=== PATIENT | female | born 1975 | race Two or more races ===

== ENCOUNTER 2016-11-23 05:14 | Inpatient (IN) | payer MEDICAID ==
[~2016-11-23] VITALS: Ht 152.4 cm; Wt 104.3 kg
[2016-11-23] VITALS (16 sets, daily range): BP systolic 94–137; BP diastolic 60–82
[~2016-11-23 05:14] MED LIST: ACTOS30 MG ORAL; LANTUS SOL100 UNIT/1 SUBQ; METFORMIN HCL500 M1 ORAL; OMEPRAZOLE20 M2 ORAL; ORA PO; SIMVASTATIN40 MG ORAL; [UNRECOGNIZED DRUG - OTHER] PO
[2016-11-23] MEDS ORDERED: ceFAZolin 1gm in D5W 55ml IVP ONE (06:00)
[2016-11-23] MEDS ORDERED: Surgicel 4in x 8in TOPIC ONE (07:01)
[2016-11-23] MEDS ORDERED: Bupivacaine 0.5% Inj 30 ml vial INJ ONE (07:01)
[2016-11-23] MEDS ORDERED: cefOXitin 2gm Inj ONE (07:14)
[2016-11-23] MEDS ORDERED: NS Irrig 1000ml ONE (07:45)
[2016-11-23] MEDS ORDERED: Morphine Sulfate 10mg/ml Inj ONE (07:45)
[2016-11-23] MEDS ORDERED: Propofol 10mg/ml 20ml IV ONE (07:45)
[2016-11-23] MEDS ORDERED: NS 110ml ONE (07:45)
[2016-11-23] MEDS ORDERED: Sterile Water Irrig 1000ml IRRIG ONE (07:45)
[2016-11-23] MEDS ORDERED: Glycopyrrolate 0.2mg/ml 1ml Vial ONE (07:45)
[2016-11-23] MEDS ORDERED: Succinylcholine 20mg/ml 10ml vial ONE (07:45)
[2016-11-23] MEDS ORDERED: fentaNYL 100 mcg/2 mL IV ONE (07:45)
[2016-11-23] MEDS ORDERED: Neostigmine 1mg/ml 10ml Inj ONE (07:45)
[2016-11-23] MEDS ORDERED: Midazolam 2mg/2ml Inj ONE (07:45)
--- NOTE | 2016-11-23 07:45 | Anethesia Preoperative Eval ---
Anesthesia Pre-op PMH/ROS General Date of Evaluation: Nov 23, 2016 Time of Evaluation: 07:26 Anesthesiologist: Zoila ASA Score: ASA 3 Mallampati Score Class I : Soft palate, uvula, fauces, pillars visible Class II: Soft palate, uvula, fauces visible Class III: Soft palate, base of uvula visible Class IV: Only hard plate visible Mallampati Classification: Class III Surgeon: Wiliam Diagnosis: R kidney hydronephrosis Surgical Procedure: Laparoscopic R nephrectomy Anesthesia History: none Family History: no anesthesia problems Allergies: Coded Allergies: NO KNOWN ALLERGIES (Verified Allergy, Unknown, 11/22/16) Medications: see eMAR Past Medical History Cardiovascular: Denies: CAD, HTN, [place], arrhythmia, other, valve dz Pulmonary: Reports: KENIA, Denies: COPD, asthma, other Gastrointestinal/Genitourinary: Reports: GERD, other - Recurrent UTI kidney stones, Denies: CRI, ESRD Neurologic/Psychiatric: Denies: CVA, TIA, dementia, depression/anxiety, other Endocrine: Reports: DM - Poorly controlled, Denies: hypothyroidism, other, steroids HEENT: Denies: YAKUTAT (L), YAKUTAT (R), cataract (L), cataract (R), glaucoma, other Hematology/Immune: Denies: DVT, anemia, bleeding disorder, other Musculoskeletal/Integumentary: Denies: DDD, DJD, OA, RA, edema, other Other: obesity PMH Narrative: as above PSxH Narrative: Sx for removal of kidney stones,R shoulder arthroscopy Anesthesia Pre-op Phys. Exam Physician Exam Last Vital Signs Date Time Temp Pulse Resp B/P Pulse Ox O2 Delivery O2 Flow Rate FiO2 11/23/16 05:57 98.2 77 20 103/62 95 Room Air Constitutional: NAD Neurologic: CN 2-12 intact Cardiovascular: RRR, no M/R/G Respiratory: CTA Gastrointestinal: other - Obesity Airway Exam Mallampati Score: Class III MO: full Neck: short ROM: full Teeth: intact Dentures: no lower, no upper Anesthesia Pre-op A/P Labs see chart Accucheck at admission 93, before entering the OR 85 , D5-0,5NSinfusion started Urine Test Test 11/23/16 05:30 Urine HCG, Qualitative Negative Studies Pre-op Studies: EKG - SR Risk Assessment & Plan Assessment: ASA 3 Plan: GA with ETT Status Change Before Surgery: No Pre-Antibiotics Drug: Cefoxitin 2r. Given Within 1 Hr of Incision: Yes Time Given: 08:10 WILFREDO DICKSON M.D. Nov 23, 2016 07:45
--- NOTE | 2016-11-23 07:47 | Pre-Procedure Note/Attestation ---
Pre-Procedure Note/Attestation Complete Prior to Procedure Procedure Narrative: Right Laparoscopic Nephrectomy Attestation I attest that I discussed the nature of the procedure; its benefits; risks and complications; and alternatives (and the risks and benefits of such alternatives ), prior to the procedure, with the patient (or the patient's legal membership sales representative). I attest that, if there was a reasonable possibility of needing a blood transfusion, the patient (or the patient's legal membership sales representative) was given the [facility] standardized written summary, pursuant to the Chema Jesse Blood Safety Act ([place] Health and Safety Code # 1645, as amended). I attest that I re-evaluated the patient just prior to the surgery and that there has been no change in the patient's H&P, except as documented below: Jose Swain MD Nov 23, 2016 07:47
--- NOTE | 2016-11-23 07:49 | Brief Operative Note ---
Immediate Post Operative Note Operative Note Procedure: Right Laparoscopic Nephrectomy Post-op Diagnosis: same Post-op Diagnosis: same as pre-op Surgeon: Elan Swain Anesthesia: general Specimen: yes Complications: none Condition: stable Estimated Blood Loss: minimal Drains: none Implant(s) used?: No Jose Swain MD Nov 23, 2016 07:49
[2016-11-23] MEDS ORDERED: HYDROmorphone 1mg/ml Carpuject IVP PRN (08:00)
[2016-11-23] MEDS ORDERED: LR 1000ml 1,000 ML IVLG SCH (08:36)
[2016-11-23] MEDS ORDERED: Meperidine 25mg/ml Inj IV PRN (08:45)
[2016-11-23] MEDS ORDERED: Metoclopramide 10mg/2ml Inj IVP PRN (08:45)
[2016-11-23] MEDS ORDERED: Hydromorphone 0.5mg/0.5ml inj IVP PRN (08:45)
[2016-11-23] MEDS ORDERED: DiphenhydrAMINE 50mg/ml Inj IVP PRN ×2 (08:45→09:30)
[2016-11-23] MEDS ORDERED: Midazolam 2mg/2ml Inj IVP PRN (08:45)
[2016-11-23] MEDS ORDERED: Naloxone 0.4mg/ml Inj IVP PRN (09:30)
[2016-11-23] MEDS ORDERED: Rate Change PCA 1 Each MISC PRN (09:30)
[2016-11-23] MEDS: fentaNYL 100 mcg/2 mL IV PRN ×2 (10:17→10:47)
--- NOTE | 2016-11-23 10:27 | Immediate Post-Op Evaluation ---
Immediate Post-Op Evalulation Immediate Post-Op Evalulation Procedure: R laparoscopic handassysted nephrectopmy Date of Evaluation: Nov 23, 2016 Time of Evaluation: 09:46 IV Fluids: 1000 Blood Products: none Estimated Blood Loss: 150 Urinary Output: 100 Blood Pressure Systolic: 134 Blood Pressure Diastolic: 68 Pulse Rate: 79 Respiratory Rate: 20 O2 Sat by Pulse Oximetry: 99 Temperature (Fahrenheit): 97.5 Pain Score (1-10): 2 Nausea: No Vomiting: No Complications none Patient Status: reacts, patent, extubated, none Hydration Status: adequate WILFREDO DICKSON M.D. Nov 23, 2016 10:27
[2016-11-23] MEDS: PCA HYDROmorphone 1mg/ml 30 ML IV PRN (11:48)
[2016-11-23] MEDS: D5 1/2NS w/KCl 20mEq 1,000 ML IV SCH (14:46)
[2016-11-23] MEDS: PCA shift volume MISC SCH ×2 (15:28→23:00)
[2016-11-23] MEDS: ceFAZolin sod 2 GM in D5W 100 ML IV SCH (16:58)
[2016-11-23] MEDS: Docusate 100mg cap ORAL SCH (18:00)
--- NOTE | 2016-11-23 18:47 | Operative Note - Dictated ---
DATE OF OPERATION: 11/23/2016 PREOPERATIVE DIAGNOSIS: Nonfunctioning right kidney with recurrent stones and infection. POSTOPERATIVE DIAGNOSIS: Nonfunctioning right kidney with recurrent stones and infection. OPERATION: Right laparoscopic radical nephrectomy. OPERATED BY: Jose Swain M.D. ANESTHESIA: General. FINDINGS: Nonfunctioning kidney. INDICATIONS FOR SURGERY: The patient had multiple procedures on the right kidney with PCNL and retrograde intrarenal surgery, developed recurrence stone and enlarged nonfunctioning upper moiety of the kidney. Due to her constant hospitalizations, pain and discomfort, she asked me to remove this kidney. I explained to her all the benefits and problems living with one kidney, she insisted on right laparoscopic nephrectomy. Due to the fact the kidney was mostly nonfunctioning with recurrent large stones, I agreed to perform laparoscopic nephrectomy. Treatment option again was explained to her as well as all potential complications. She signed a consent. DESCRIPTION OF OPERATION: She was brought to the operating room, placed in a right lateral decubital position, prepped and draped in standard fashion. A 7 centimeter incision was made at the McBurney's point and a hand port was placed. After that, two additional 12 millimeter trocar was placed. The colon was retracted medially and the duodenum was cauterized and then moved cephalad and medially as well. Exposing right renal fossa, ureter was transected with an Endo-NUHA. The kidney was dissected on all aspects all way to the renal pedicle, which was transected with Endo-NUHA, adrenal was preserved. Surgicel was placed at the area of the adrenal. Kidney was removed for pathologic examination. There was no evidence of bleeding. Total estimated blood loss was 50 mL. was placed back. Wound was closed with three layers of running 0 Vicryl suture. Stacey for the skin. The patient tolerated the procedure well. No complications. Sponge count and instrument count was correct. Jose Swain M.D. DR: BENTLEY JOB#: [id number] CC:
[2016-11-24] VITALS: BP 97/58
[2016-11-24] MEDS: ceFAZolin sod 2 GM in D5W 100 ML IV SCH (00:41)
[2016-11-24] MEDS: D5 1/2NS w/KCl 20mEq 1,000 ML IV SCH ×2 (00:41→09:14)
[2016-11-24 04:00] VITALS: BP 104/66
[2016-11-24 07:09] LABS: BASOPHILS % (AUTO) 0.9 % (0.0-2.0); EOSINOPHILS % (AUTO) 1.2 % (0.0-3.0); LYMPHOCYTES % (AUTO) 27.8 % (20.0-45.0); MEAN CORPUSCULAR HEMOGLOBIN 29.7 PG (27.0-31.0); MEAN CORPUSCULAR HGB CONC 32.5 G/DL (32.0-36.0); MEAN CORPUSCULAR VOLUME 92 FL (80-99); MEAN PLATELET VOLUME 5.9 FL (6.5-10.1); MONOCYTES % (AUTO) 10.2 % (1.0-10.0); NEUTROPHILS % (AUTO) 59.9 % (45.0-75.0); PLATELET COUNT 244 K/UL (150-450); RED BLOOD COUNT 3.96 M/UL (4.20-5.40); RED CELL DISTRIBUTION WIDTH 12.1 % (11.6-14.8); WHITE BLOOD COUNT 5.7 K/UL (4.8-10.8)
[2016-11-24] MEDS: PCA shift volume MISC SCH ×3 (07:28→23:00)
[2016-11-24 07:31] LABS: ANION GAP 8 (5-15); CALCIUM 8.1 mg/dL (8.6-10.2); CARBON DIOXIDE 27 mEQ/L (20-30); CHLORIDE 97 mEQ/L (98-107); GLOMERULAR FILTRATION RATE > 60 mL/min (>60); HEMOLYSIS 9; POTASSIUM 5.3 mEQ/L (3.4-4.9); SODIUM 132 mEQ/L (135-145)
[2016-11-24 08:00] VITALS: BP 111/64
[2016-11-24] MEDS: Docusate 100mg cap ORAL SCH ×2 (08:55→17:09)
--- NOTE | 2016-11-24 10:59 | 48 Hour Post Anesthesia Eval ---
Post Anesthesia Evaluation Procedure: R laparoscopic handassysted nephrectopmy Date of Evaluation: Nov 24, 2016 Time of Evaluation: 06:45 Blood Pressure Systolic: 104 0: 66 Pulse Rate: 88 Respiratory Rate: 18 Temperature (Fahrenheit): 98.1 O2 Sat by Pulse Oximetry: 97 Airway: patent Nausea: No Vomiting: No Pain Intensity: 2 Hydration Status: adequate Cardiopulmonary Status: at baseline Mental Status/LOC: patient returned to baseline Post-Anesthesia Complications: 0 Follow-up care needed: N/A - further care as per primary team AJAY SERRANO M.D. Nov 24, 2016 10:59
[2016-11-24 12:00] VITALS: BP_SYST 107; BP_SYST 91; BP_DIAS 55; BP_DIAS 63
[2016-11-24 16:17] VITALS: BP 106/65
[2016-11-24] MEDS: PCA HYDROmorphone 1mg/ml 30 ML IV PRN (17:09)
[2016-11-24 20:00] VITALS: BP 96/64
[2016-11-25] VITALS: BP 100/58
[2016-11-25 04:00] VITALS: BP 103/63
[2016-11-25] MEDS: PCA shift volume MISC SCH (07:00)
[2016-11-25 08:00] VITALS: BP 119/66
[2016-11-25] MEDS: Docusate 100mg cap ORAL SCH (09:04)
--- NOTE | 2016-11-25 09:47 | Internal Med Progress Note ---
Subjective Physician Name Mayco Gamboa Attending Physician Jose Swain MD Current Medications Medications (Trade) Dose Ordered Sig/Triny Route PRN Reason Start Time Stop Time Status Last Admin Dose Admin Acetaminophen (Tylenol) 650 mg Q4H PRN ORAL FEVER 11/23/16 08:00 12/23/16 07:59 Acetaminophen (Tylenol) 650 mg Q6H PRN ORAL Mild Pain (Pain Scale 1-3) 11/23/16 08:00 12/23/16 07:59 11/25/16 09:04 Docusate Sodium (Colace) 100 mg TWICE A DAY ORAL 11/23/16 18:00 12/23/16 17:59 11/25/16 09:04 Hydromorphone HCl (Dilaudid) 1 mg Q3H PRN IVP pain score 4-6 11/23/16 08:00 11/30/16 07:59 Ondansetron HCl (Zofran) 4 mg Q6H PRN IVP Nausea & Vomiting 11/23/16 08:00 12/23/16 07:59 Pantoprazole 40 mg 40 mg DAILY ORAL 11/24/16 09:00 12/24/16 08:59 11/25/16 09:04 Sodium Chloride (0.45% NS 1000ml) 1,000 ml @ 100 mls/hr Q10H IV 11/24/16 10:00 12/24/16 09:59 11/25/16 06:03 Allergies: Coded Allergies: NO KNOWN ALLERGIES (Verified Allergy, Unknown, 11/22/16) Subjective awake, alert, responsive, NAD Objective Last Vital Signs Date Time Temp Pulse Resp B/P Pulse Ox O2 Delivery O2 Flow Rate FiO2 11/25/16 08:00 98.6 93 20 119/66 96 Room Air 11/24/16 04:00 2.0 Intake and Output 11/24/16 11/25/16 19:00 07:00 Intake Total 480 ml 640 ml Output Total 1800 ml Balance 480 ml -1160 ml Intake Oral 480 ml 240 ml IV Total 400 ml Output Urine Total 1800 ml # Voids 3 Objective General Appearance: WD/WN, no apparent distress EENT: PERRL/EOMI, normal ENT inspection Neck: non-tender, normal alignment, supple, No JVD Cardiovascular: normal peripheral pulses, normal rate, regular rhythm, no murmur Respiratory/Chest: chest wall non-tender, lungs clear, normal breath sounds, no respiratory distress. Abdomen: normal bowel sounds, + tender, soft, Right side and Lower Q surgical incision intact dressing Extremities: No C/C / Edema Neurologic: detective investigator II-XII grossly normal, no motor/sensory deficits Skin: normal pigmentation, warm/dry Assessment/Plan Assessment/Plan HTN DM HL Morbid Obesity Hyperkalemia CKD Hyponatremia Nonfunctioning right kidney with recurrent stones and infection s/p Right laparoscopic radical nephrectomy (11/23/2016). Plan: monitor Labs Pain Medication DC Planning soon. F/U with Urology in 1 week as out patient. Mayco Gamboa MD Nov 25, 2016 09:47
[2016-11-25 10:10] LABS: BASOPHILS % (AUTO) 0.7 % (0.0-2.0); EOSINOPHILS % (AUTO) 0.5 % (0.0-3.0); MEAN CORPUSCULAR HEMOGLOBIN 29.3 PG (27.0-31.0); MEAN CORPUSCULAR HGB CONC 32.8 G/DL (32.0-36.0); MEAN CORPUSCULAR VOLUME 89 FL (80-99); MONOCYTES % (AUTO) 5.8 % (1.0-10.0); PLATELET COUNT 257 K/UL (150-450); RED BLOOD COUNT 3.82 M/UL (4.20-5.40); RED CELL DISTRIBUTION WIDTH 11.5 % (11.6-14.8); WHITE BLOOD COUNT 7.9 K/UL (4.8-10.8)
[2016-11-25 10:27] LABS: ALANINE AMINOTRANSFERASE 11 U/L (3-33); ALBUMIN/GLOBULIN RATIO 0.9 (1.0-2.7); ANION GAP 11 (5-15); ASPARTATE AMINO TRANSFERASE 16 U/L (5-40); CALCIUM 8.6 mg/dL (8.6-10.2); CARBON DIOXIDE 28 mEQ/L (20-30); CHLORIDE 93 mEQ/L (98-107); CREATININE 0.8 mg/dL (0.5-0.9); GLOMERULAR FILTRATION RATE > 60 mL/min (>60); HEMOLYSIS 1; MAGNESIUM 1.9 mg/dL (1.7-2.5); PHOSPHORUS 2.3 mg/dL (2.5-4.8); POTASSIUM 4.4 mEQ/L (3.4-4.9); SODIUM 132 mEQ/L (135-145); TOTAL PROTEIN 7.3 g/dL (6.6-8.7)
--- NOTE | 2016-11-25 19:42 | Discharge Summary ---
Discharge Summary Hospital Course Date of Admission Nov 23, 2016 at 05:14 Date of Discharge Nov 25, 2016 at 13:23 Admitting Diagnosis HPI Elvie Steel is a 41 year old female who was admitted on Nov 23, 2016 at 05:14 for Hydronephrosis Hospital Course [id number] Discharge Discharge Disposition Patient was discharged to Home (01) Discharge Diagnoses: Perri Chester NP Nov 25, 2016 19:42
--- NOTE | 2016-11-26 16:47 | Discharge Summary 2 SIG ---
DATE OF ADMISSION: 11/23/2016 DATE OF DISCHARGE: 11/25/2016 [facility] GUIDE: Mayco Gamboa M.D. BRIEF HOSPITAL COURSE: The patient is a 41-year-old female, who had multiple procedures on the right kidney with PCNL and retrograde intrarenal surgery, developed recurrent stones and enlarged nonfunctioning kidney. Due to her constant hospitalizations, pain, and discomfort, the patient opted to remove kidney. On 11/23/2016, she underwent right laparoscopic radical nephrectomy. Postoperatively, she was given pain management and IV hydration and incentive spirometry. Diet was eventually advanced. Orta catheter was discontinued, and the patient was voiding well and was discharged home. FINAL DIAGNOSES: 1. Nonfunctioning right kidney with recurrent stones and infections, status post right laparoscopic radical nephrectomy. 2. Hyponatremia. 3. Chronic kidney disease. 4. Hyperkalemia. 5. Morbid obesity. 6. Hyperlipidemia. 7. Diabetes mellitus. 8. Hypertension. Jose Swain M.D. I have been assigned to dictate discharge summary on this account and I was not involved in the patient's management. Perri Chester N.P. DR: BIJU JOB#: [id number] CC:
== END 2016-11-25 13:23 | disposition home or self-care (01) | DRG 443 ==
LOC: SDSOVERFLO 05:14 → 3E 12:36
PROC: 0TT04ZZ Resection of Right Kidney, Percutaneous Endoscopic Approach (ICD-10-PCS; principal; 2016-11-23 07:30)
DX: N13.6 Pyonephrosis (principal); E11.65 Type 2 diabetes mellitus with hyperglycemia; I12.9 Hypertensive chronic kidney disease with stage 1 through stage 4 chronic kidney disease, or unspecified chronic kidney disease; G47.33 Obstructive sleep apnea (adult) (pediatric); K21.9 Gastro-esophageal reflux disease without esophagitis; N28.9 Disorder of kidney and ureter, unspecified; E87.1 Hypo-osmolality and hyponatremia; N18.9 Chronic kidney disease, unspecified; E11.9 Type 2 diabetes mellitus without complications; E87.5 Hyperkalemia; E66.01 Morbid (severe) obesity due to excess calories; E78.5 Hyperlipidemia, unspecified
CPT/HCPCS: 36415; 80048; 80053; 81025; 82962; 83735; 84100; 85025; 86850; 86900; 86901; 87081; 94003; 94150; J2250; J2405; J2710

== ENCOUNTER 2016-11-27 18:31 | Emergency (ER) | payer MEDICAID ==
[~2016-11-27] VITALS: Ht 152.4 cm; Wt 104.3 kg
[2016-11-27 18:57] VITALS: BP 148/84
[2016-11-27] MEDS ORDERED: Morphine Sulfate 4mg/ml Inj IVP ONE (19:15)
[2016-11-27 20:00] VITALS: BP 134/86
[2016-11-27 20:21] LABS: BASOPHILS % (AUTO) 1.5 % (0.0-2.0); EOSINOPHILS % (AUTO) 0.6 % (0.0-3.0); LYMPHOCYTES % (AUTO) 20.9 % (20.0-45.0); MEAN CORPUSCULAR HEMOGLOBIN 29.5 PG (27.0-31.0); MEAN CORPUSCULAR HGB CONC 33.2 G/DL (32.0-36.0); MEAN CORPUSCULAR VOLUME 89 FL (80-99); MONOCYTES % (AUTO) 8.1 % (1.0-10.0); PLATELET COUNT 399 K/UL (150-450); RED BLOOD COUNT 4.11 M/UL (4.20-5.40); RED CELL DISTRIBUTION WIDTH 11.7 % (11.6-14.8)
[2016-11-27 20:25] LABS: APPEARANCE,URINE CLOUDY; KETONES,URINE 4+ (NEGATIVE); LEUKOCYTE ESTERASE ,URINE 1+ (NEGATIVE); NITRITE,URINE NEGATIVE (NEGATIVE); PH,URINE 9 (4.5-8.0); PROTEIN,URINE 2+ (NEGATIVE); UROBILINOGEN,URINE 4 MG/DL (0.0-1.0)
[2016-11-27 20:32] LABS: BACTERIA,URINE MODERATE /HPF; ICTOTEST NEGATIVE; RBC,URINE 0 /HPF (0 - 2); SQUAMOUS EPITHELIAL CELL,UR MODERATE /LPF (NONE/OCC)
[2016-11-27 20:52] LABS: ALANINE AMINOTRANSFERASE 11 U/L (3-33); ALBUMIN/GLOBULIN RATIO 0.9 (1.0-2.7); ANION GAP 18 (5-15); ASPARTATE AMINO TRANSFERASE 21 U/L (5-40); CALCIUM 9.3 mg/dL (8.6-10.2); CARBON DIOXIDE 25 mEQ/L (20-30); CHLORIDE 88 mEQ/L (98-107); CREATININE 0.8 mg/dL (0.5-0.9); GLOMERULAR FILTRATION RATE > 60 mL/min (>60); HEMOLYSIS 1; LIPASE 21 U/L (< 60); POTASSIUM 3.5 mEQ/L (3.4-4.9); SODIUM 131 mEQ/L (135-145); TOTAL PROTEIN 7.6 g/dL (6.6-8.7)
[2016-11-27 21:00] VITALS: BP 126/74
[2016-11-27 21:09] LABS: BILIRUBIN,DIRECT 0.4 mg/dL (0.1-0.3)
[2016-11-27] MEDS ORDERED: cefTRIAXone 1 GM in NS 55 ML IVPB ONE (21:30)
[2016-11-27] MEDS ORDERED: ZOFRAN ODT4 MG ORAL (21:53)
[2016-11-27] MEDS ORDERED: KEFLEX500 MG ORAL (21:53)
[2016-11-27 22:08] VITALS: BP 126/74
--- NOTE | 2016-11-28 14:40 | Emergency Room Report ---
History of Present Illness General Chief Complaint: Abdominal Pain Source: Patient Present Illness HPI 41-year-old female presents ED complaining of abdominal pain and vomiting. Patient states symptoms started 2 days ago. Pain is sharp. 10 out of 10. Localized lower abdomen radiating to the back. Denies fevers chills. Notes nausea and vomiting. She states she was just discharged from [facility] after having nephrectomy on the right side. No other aggravating or relieving factors. Denies any other associated symptoms Allergies: Coded Allergies: NO KNOWN ALLERGIES (Verified Allergy, Unknown, 11/22/16) Patient History Past Medical History: DM, asthma, GERD Past Surgical History: none Pertinent Family History: none Social History: Denies: alcohol use, drug use, smoking Last Menstrual Period: hysterectomy 2016 Now: No Immunizations: UTD Reviewed Nursing Documentation: PMH: Agreed, PSxH: Agreed Nursing Documentation-PMH Hx Asthma: Yes Hx Diabetes: Yes Hx Cancer: No Hx Gastrointestinal Problems: Yes - GASTRITIS; CONSTIPATION Hx Neurological Problems: No Review of Systems All Other Systems: negative except mentioned in HPI Physical Exam Vital Signs Date Time Temp Pulse Resp B/P Pulse Ox O2 Delivery O2 Flow Rate FiO2 11/27/16 18:46 98.6 81 23 148/84 100 Room Air 11/27/16 20:00 2.0 Sp02 EP Interpretation: reviewed, normal General Appearance: no apparent distress, alert, GCS 15, non-toxic, obese Head: normocephalic, atraumatic Eyes: bilateral eye PERRL, bilateral eye normal inspection ENT: hearing grossly normal, normal pharynx, no angioedema, normal voice Neck: full range of motion, supple/symm/no masses Respiratory: chest non-tender, lungs clear, normal breath sounds, speaking full sentences Cardiovascular #1: regular rate, rhythm, no edema Cardiovascular #2: 2+ carotid (R), 2+ carotid (L), 2+ radial (R), 2+ radial (L) , 2+ dorsalis pedis (R), 2+ dorsalis pedis (L) Gastrointestinal: normal bowel sounds, non-distended, no guarding, no rebound, tenderness - suprapubic pain, other - surgical sites C/D/I Rectal: deferred Genitourinary: normal inspection, no CVA tenderness Musculoskeletal: back normal, gait/station normal, normal range of motion, non- tender Neurologic: alert, oriented x3, responsive, motor strength/tone normal, sensory intact, speech normal Psychiatric: judgement/insight normal, memory normal, mood/affect normal, no suicidal/homicidal ideation Reflexes: 3+ bicep (R), 3+ bicep (L), 3+ tricep (R), 3+ tricep (L), 3+ knee (R) , 3+ knee (L) Skin: normal color, no rash, warm/dry, well hydrated Lymphatic: no adenopathy Medical Decision Making Diagnostic Impression: Primary Impression: Cystitis ER Course Hospital Course 41-year-old female presents ED with abdominal pain and vomiting. Status post nephrectomy Differential diagnoses include: UTI, cystitis, pyelonephritis, surgical site infection Clinical course Patient placed on stretcher. After initial history and physical I ordered UA, labs, IV fluids, pain Meds labs - no leukocytosis noted, hbhematocrit stable, electrolytes okay, UA grossly positive On reassessment pain is improved. Given Rocephin in ED. I discussed case with urologist Dr. Swain; he agreed that patient be safely discharged to home at this time and should followup Diagnosis - cystitis Stable and discharged home with prescriptions for Rx zofran, keflex. Followup with PMD. Return to ED if symptoms recur or worsen Labs Test 11/27/16 19:50 White Blood Count 5.0 K/UL (4.8-10.8) Red Blood Count 4.11 M/UL (4.20-5.40) Hemoglobin 12.1 G/DL (12.0-16.0) Hematocrit 36.6 % (37.0-47.0) Mean Corpuscular Volume 89 FL (80-99) Mean Corpuscular Hemoglobin 29.5 PG (27.0-31.0) Mean Corpuscular Hemoglobin Concent 33.2 G/DL (32.0-36.0) Red Cell Distribution Width 11.7 % (11.6-14.8) Platelet Count 399 K/UL (150-450) Mean Platelet Volume 5.0 FL (6.5-10.1) Neutrophils (%) (Auto) 69.0 % (45.0-75.0) Lymphocytes (%) (Auto) 20.9 % (20.0-45.0) Monocytes (%) (Auto) 8.1 % (1.0-10.0) Eosinophils (%) (Auto) 0.6 % (0.0-3.0) Basophils (%) (Auto) 1.5 % (0.0-2.0) Urine Color Treva Urine Appearance Cloudy Urine pH 9 (4.5-8.0) Urine Specific [place] 1.015 (1.005-1.035) Urine Protein 2+ (NEGATIVE) Urine Glucose (UA) Negative (NEGATIVE) Urine Ketones 4+ (NEGATIVE) Urine Occult Blood Negative (NEGATIVE) Urine Nitrite Negative (NEGATIVE) Urine Bilirubin Negative (NEGATIVE) Urine Ictotest Negative Urine Urobilinogen 4 MG/DL (0.0-1.0) Urine Leukocyte Esterase 1+ (NEGATIVE) Urine RBC 0 /HPF (0 - 2) Urine WBC 5-10 /HPF (0 - 2) Urine Squamous Epithelial Cells Moderate /LPF (NONE/OCC) Urine Bacteria Moderate /HPF (NONE) Sodium Level 131 mEQ/L (135-145) Potassium Level 3.5 mEQ/L (3.4-4.9) Chloride Level 88 mEQ/L (98-107) Carbon Dioxide Level 25 mEQ/L (20-30) Anion Gap 18 (5-15) Blood Urea Nitrogen 11 mg/dL (7-23) Creatinine 0.8 mg/dL (0.5-0.9) Estimat Glomerular Filtration Rate > 60 mL/min (>60) Glucose Level 165 mg/dL (74-106) Calcium Level 9.3 mg/dL (8.6-10.2) Total Bilirubin 1.8 mg/dL (0.0-1.2) Direct Bilirubin 0.4 mg/dL (0.1-0.3) Aspartate Amino Transf (AST/SGOT) 21 U/L (5-40) Alanine Aminotransferase (ALT/SGPT) 11 U/L (3-33) Alkaline Phosphatase 98 U/L (35-104) Total Protein 7.6 g/dL (6.6-8.7) Albumin 3.6 g/dL (3.5-5.2) Globulin 4.0 g/dL Albumin/Globulin Ratio 0.9 (1.0-2.7) Lipase 21 U/L (< 60) Last Vital Signs Date Time Temp Pulse Resp B/P Pulse Ox O2 Delivery O2 Flow Rate FiO2 11/27/16 22:08 98.6 101 26 126/74 99 Nasal Cannula 2.0 Status: improved Disposition: HOME, SELF-CARE Condition: Stable Scripts Ondansetron Odt* (ZOFRAN ODT*) 4 Mg Tab.rapdis 4 MG ORAL Q6H Y for Nausea & Vomiting, #30 TAB 0 Refills Prov: CECILIA IBARRA M.D. 11/27/16 Cephalexin* (KEFLEX*) 500 Mg Capsule 500 MG ORAL Q6H, #28 CAP 0 Refills Prov: CECILIA IBARRA M.D. 11/27/16 Referrals: Jose Swain MD Patient Instructions: Urinary Tract Infection CECILIA IBARRA M.D. Nov 28, 2016 14:40
== END 2016-11-27 22:08 | disposition home or self-care (01) ==
LOC: EMR 19:00
DX: N30.90 Cystitis, unspecified without hematuria (principal); R11.2 Nausea with vomiting, unspecified; E11.9 Type 2 diabetes mellitus without complications; Z87.09 Personal history of other diseases of the respiratory system; Z87.19 Personal history of other diseases of the digestive system; Z90.710 Acquired absence of both cervix and uterus; Z90.5 Acquired absence of kidney
CPT/HCPCS: 36415; 80053; 81003; 82248; 83690; 85025; 87086; 87181; 96361; 96365; 96374; 96375; 99284; J0696; J2270; J2405

== ENCOUNTER 2016-11-28 18:12 | Inpatient (IN) | payer MEDICAID ==
[~2016-11-28] VITALS: Ht 177.8 cm; Wt 104.3 kg
[~2016-11-28 18:12] MED LIST changes: +KEFLEX500 MG ORAL; +ZOFRAN ODT4 MG ORAL
--- NOTE | 2016-11-28 18:57 | Emergency Room Report ---
History of Present Illness General Chief Complaint: Vomiting Source: Patient Present Illness HPI 41-year-old female presents to ED for evaluation of vomiting and weakness. Patient states that last week she had nephrectomy done here at [place]. Was discharged a few days later. States that after being discharged he was having abdominal pain and vomiting. Was seen in ER yesterday. Workup showed cystitis and was discharged with Keflex and Zofran. Patient states that the vomiting is persisting she came back to ER today. Denies any abdominal pain at this time. Denies any fevers or chills. No other aggravating or relieving factors. Denies any other associated symptoms Allergies: Coded Allergies: NO KNOWN ALLERGIES (Verified Allergy, Unknown, 11/22/16) Patient History Past Medical History: DM, asthma, GERD Past Surgical History: other - nephrectomy Pertinent Family History: none Social History: Denies: alcohol use, drug use, smoking Now: No Immunizations: UTD Reviewed Nursing Documentation: PMH: Agreed, PSxH: Agreed Nursing Documentation-PMH Hx Asthma: Yes Hx Diabetes: Yes Hx Cancer: No Hx Gastrointestinal Problems: Yes - GASTRITIS; CONSTIPATION;Nephrectomy Hx Neurological Problems: No Review of Systems All Other Systems: negative except mentioned in HPI Physical Exam Vital Signs Date Time Temp Pulse Resp B/P Pulse Ox O2 Delivery O2 Flow Rate FiO2 11/28/16 18:28 98.2 79 20 128/85 99 Room Air Sp02 EP Interpretation: reviewed, normal General Appearance: no apparent distress, alert, GCS 15, non-toxic, obese Head: normocephalic, atraumatic Eyes: bilateral eye PERRL, bilateral eye normal inspection ENT: hearing grossly normal, normal pharynx, no angioedema, normal voice Neck: full range of motion, supple/symm/no masses Respiratory: chest non-tender, lungs clear, normal breath sounds, speaking full sentences Cardiovascular #1: regular rate, rhythm, no edema Cardiovascular #2: 2+ carotid (R), 2+ carotid (L), 2+ radial (R), 2+ radial (L) , 2+ dorsalis pedis (R), 2+ dorsalis pedis (L) Gastrointestinal: normal bowel sounds, non tender, soft, non-distended, no guarding, no rebound Rectal: deferred Genitourinary: normal inspection, no CVA tenderness Musculoskeletal: back normal, gait/station normal, normal range of motion, non- tender Neurologic: alert, oriented x3, responsive, motor strength/tone normal, sensory intact, speech normal Psychiatric: judgement/insight normal, memory normal, mood/affect normal, no suicidal/homicidal ideation Reflexes: 3+ bicep (R), 3+ bicep (L), 3+ tricep (R), 3+ tricep (L), 3+ knee (R) , 3+ knee (L) Skin: normal color, no rash, warm/dry, well hydrated Lymphatic: no adenopathy Medical Decision Making Diagnostic Impression: Primary Impression: Postoperative ileus Additional Impression: Small bowel obstruction ER Course Hospital Course 41-year-old female presents to ED with abdominal pain and vomiting. s/p recent nephrectomy. patient here yesterday for same complaint Differential diagnoses include: BPH, cystitis, pyelonephritis, kidney stone,SBO Clinical course Patient placed on stretcher. vp product management. I evaluated the patient yesterday. Given that patient is returning with continued vomiting we will have a CT done at this time I ordered labs, IVFs, zofarn, CT Labs - no leukocytosis, Hb/Hct stable. electrolytes ok. CT abdomen and pelvis - SBO with transition point She is passing gas and having bowel movements. Likely the instruction is partial and likely an ileus NG tube placed. Case discussed with Dr. Jarquin and he agreed to accept the patient to his service for further care and support. Dr. Swain will continue to follow patient. Dr. Leblanc agreed to consult on case I feel this is a highly complex case requiring extensive working including EKG/ Rhythm strip, Xray/CT/US, Blood/urine lab work, repeat exams while in ED, and administration of strong opiates/narcotics for pain control, admission to hospital or close patient follow up. Diagnosis - small bowel obstruction, postoperative ileus Patient admitted to floor in serious condition Labs Test 11/28/16 18:59 11/29/16 05:45 11/30/16 06:10 White Blood Count 6.1 K/UL (4.8-10.8) 5.2 K/UL (4.8-10.8) Red Blood Count 4.04 M/UL (4.20-5.40) 3.73 M/UL (4.20-5.40) Hemoglobin 12.1 G/DL (12.0-16.0) 11.0 G/DL (12.0-16.0) Hematocrit 35.5 % (37.0-47.0) 33.3 % (37.0-47.0) Mean Corpuscular Volume 88 FL (80-99) 89 FL (80-99) Mean Corpuscular Hemoglobin 30.0 PG (27.0-31.0) 29.5 PG (27.0-31.0) Mean Corpuscular Hemoglobin Concent 34.1 G/DL (32.0-36.0) 33.1 G/DL (32.0-36.0) Red Cell Distribution Width 11.4 % (11.6-14.8) 12.0 % (11.6-14.8) Platelet Count 402 K/UL (150-450) 403 K/UL (150-450) Mean Platelet Volume 4.9 FL (6.5-10.1) 4.8 FL (6.5-10.1) Neutrophils (%) (Auto) 70.8 % (45.0-75.0) 68.3 % (45.0-75.0) Lymphocytes (%) (Auto) 19.3 % (20.0-45.0) 19.3 % (20.0-45.0) Monocytes (%) (Auto) 7.8 % (1.0-10.0) 9.8 % (1.0-10.0) Eosinophils (%) (Auto) 0.7 % (0.0-3.0) 1.4 % (0.0-3.0) Basophils (%) (Auto) 1.4 % (0.0-2.0) 1.1 % (0.0-2.0) Urine Color Yellow Urine Appearance Clear Urine pH 9 (4.5-8.0) Urine Specific [place] 1.015 (1.005-1.035) Urine Protein 2+ (NEGATIVE) Urine Glucose (UA) Negative (NEGATIVE) Urine Ketones 4+ (NEGATIVE) Urine Occult Blood Negative (NEGATIVE) Urine Nitrite Negative (NEGATIVE) Urine Bilirubin Negative (NEGATIVE) Urine Urobilinogen 4 MG/DL (0.0-1.0) Urine Leukocyte Esterase 1+ (NEGATIVE) Urine RBC 0-2 /HPF (0 - 2) Urine WBC 2-4 /HPF (0 - 2) Urine Squamous Epithelial Cells Few /LPF (NONE/OCC) Urine Bacteria Few /HPF (NONE) Urine HCG, Qualitative Negative Sodium Level 131 mEQ/L (135-145) 132 mEQ/L (135-145) Potassium Level 3.8 mEQ/L (3.4-4.9) 2.8 mEQ/L (3.4-4.9) Chloride Level 86 mEQ/L (98-107) 88 mEQ/L (98-107) Carbon Dioxide Level 27 mEQ/L (20-30) 30 mEQ/L (20-30) Anion Gap 18 (5-15) 14 (5-15) Blood Urea Nitrogen 12 mg/dL (7-23) 16 mg/dL (7-23) Creatinine 0.7 mg/dL (0.5-0.9) 0.8 mg/dL (0.5-0.9) Estimat Glomerular Filtration Rate > 60 mL/min (>60) > 60 mL/min (>60) Glucose Level 152 mg/dL (74-106) 162 mg/dL (74-106) Calcium Level 9.3 mg/dL (8.6-10.2) 8.8 mg/dL (8.6-10.2) Total Bilirubin 1.6 mg/dL (0.0-1.2) 1.4 mg/dL (0.0-1.2) Direct Bilirubin 0.4 mg/dL (0.1-0.3) 0.3 mg/dL (0.1-0.3) Aspartate Amino Transf (AST/SGOT) 25 U/L (5-40) 24 U/L (5-40) Alanine Aminotransferase (ALT/SGPT) 15 U/L (3-33) 16 U/L (3-33) Alkaline Phosphatase 97 U/L (35-104) 97 U/L (35-104) Total Protein 7.6 g/dL (6.6-8.7) 6.9 g/dL (6.6-8.7) Albumin 3.8 g/dL (3.5-5.2) 3.6 g/dL (3.5-5.2) Globulin 3.8 g/dL 3.3 g/dL Albumin/Globulin Ratio 1.0 (1.0-2.7) 1.0 (1.0-2.7) Lipase 23 U/L (< 60) 34 U/L (< 60) Prothrombin Time 10.3 SEC (9.30-11.50) Prothromb Time International Ratio 1.0 (0.9-1.1) Activated Partial Thromboplast Time 25 SEC (23-33) Hemoglobin A1c 8.2 % (< 6.0) Amylase Level 57 U/L (10-110) Thyroid Stimulating Hormone (TSH) 1.360 uIU/mL (0.300-4.500) CT/MRI/US Diagnostic Results CT/MRI/US Diagnostic Results : Imaging Test Ordered: CT A/P Impression dilated loops of bowel with transition point. consistent with SBO Last Vital Signs Date Time Temp Pulse Resp B/P Pulse Ox O2 Delivery O2 Flow Rate FiO2 11/28/16 18:28 98.2 79 20 128/85 99 Room Air Status: improved Disposition: ADMITTED INPATIENT Condition: Serious Referrals: [facility],REFERRING (PCP) CECILIA IBARRA M.D. Nov 28, 2016 18:57
[2016-11-28 19:17] VITALS: BP 123/77
[2016-11-28 19:28] LABS: BASOPHILS % (AUTO) 1.4 % (0.0-2.0); EOSINOPHILS % (AUTO) 0.7 % (0.0-3.0); LYMPHOCYTES % (AUTO) 19.3 % (20.0-45.0); MEAN CORPUSCULAR HGB CONC 34.1 G/DL (32.0-36.0); MEAN CORPUSCULAR VOLUME 88 FL (80-99); MEAN PLATELET VOLUME 4.9 FL (6.5-10.1); MONOCYTES % (AUTO) 7.8 % (1.0-10.0); NEUTROPHILS % (AUTO) 70.8 % (45.0-75.0); PLATELET COUNT 402 K/UL (150-450); RED BLOOD COUNT 4.04 M/UL (4.20-5.40); RED CELL DISTRIBUTION WIDTH 11.4 % (11.6-14.8); WHITE BLOOD COUNT 6.1 K/UL (4.8-10.8)
[2016-11-28 19:44] LABS: APPEARANCE,URINE CLEAR; KETONES,URINE 4+ (NEGATIVE); LEUKOCYTE ESTERASE ,URINE 1+ (NEGATIVE); NITRITE,URINE NEGATIVE (NEGATIVE); PH,URINE 9 (4.5-8.0); PROTEIN,URINE 2+ (NEGATIVE); UROBILINOGEN,URINE 4 MG/DL (0.0-1.0)
[2016-11-28 19:50] LABS: ALANINE AMINOTRANSFERASE 15 U/L (3-33); ANION GAP 18 (5-15); ASPARTATE AMINO TRANSFERASE 25 U/L (5-40); CALCIUM 9.3 mg/dL (8.6-10.2); CARBON DIOXIDE 27 mEQ/L (20-30); CHLORIDE 86 mEQ/L (98-107); CREATININE 0.7 mg/dL (0.5-0.9); GLOMERULAR FILTRATION RATE > 60 mL/min (>60); HEMOLYSIS 3; LIPASE 23 U/L (< 60); POTASSIUM 3.8 mEQ/L (3.4-4.9); SODIUM 131 mEQ/L (135-145); TOTAL PROTEIN 7.6 g/dL (6.6-8.7)
[2016-11-28 19:53] LABS: BACTERIA,URINE FEW /HPF; RBC,URINE 0-2 /HPF (0 - 2); SQUAMOUS EPITHELIAL CELL,UR FEW /LPF (NONE/OCC)
[2016-11-28 20:03] LABS: BILIRUBIN,DIRECT 0.4 mg/dL (0.1-0.3)
[2016-11-28 20:28] VITALS: BP 126/69
[2016-11-28] MEDS ORDERED: Ketorolac 30mg Inj IV ONE (20:45)
[2016-11-28] MEDS ORDERED: Metoclopramide 10mg/2ml Inj IVP ONE (21:15)
[2016-11-28] MEDS ORDERED: Morphine Sulfate 2mg/ml Inj IVP PRN (22:00)
[2016-11-28] MEDS ORDERED: Nitroglycerin Subl 0.4mg tab (Bottle Of 25) SL PRN (22:00)
[2016-11-28] MEDS ORDERED: Ketorolac 30mg Inj IV PRN (22:00)
[2016-11-28] MEDS ORDERED: Mylanta II UD 30ml ORAL PRN (22:00)
[2016-11-28 22:27] VITALS: BP 123/71
[2016-11-29] VITALS (7 sets, daily range): BP systolic 116–127; BP diastolic 68–78
[2016-11-29] MEDS: Ketorolac 30mg Inj IV PRN ×2 (01:40→13:56)
[2016-11-29] MEDS: NovoLOG Insulin Flexpen SUBQ SCH ×4 (06:18→21:00)
[2016-11-29 07:23] LABS: BASOPHILS % (AUTO) 1.1 % (0.0-2.0); EOSINOPHILS % (AUTO) 1.4 % (0.0-3.0); LYMPHOCYTES % (AUTO) 19.3 % (20.0-45.0); MEAN CORPUSCULAR HEMOGLOBIN 29.5 PG (27.0-31.0); MEAN CORPUSCULAR HGB CONC 33.1 G/DL (32.0-36.0); MEAN CORPUSCULAR VOLUME 89 FL (80-99); MEAN PLATELET VOLUME 4.8 FL (6.5-10.1); MONOCYTES % (AUTO) 9.8 % (1.0-10.0); NEUTROPHILS % (AUTO) 68.3 % (45.0-75.0); PLATELET COUNT 403 K/UL (150-450); RED BLOOD COUNT 3.73 M/UL (4.20-5.40); WHITE BLOOD COUNT 5.2 K/UL (4.8-10.8)
[2016-11-29 07:36] LABS: PROTHROMBIN TIME 10.3 SEC (9.30-11.50)
[2016-11-29 07:38] LABS: HEMOGLOBIN A1C 8.2 % (< 6.0)
[2016-11-29 07:56] LABS: ALANINE AMINOTRANSFERASE 16 U/L (3-33); AMYLASE 57 U/L (10-110); ANION GAP 14 (5-15); ASPARTATE AMINO TRANSFERASE 24 U/L (5-40); CALCIUM 8.8 mg/dL (8.6-10.2); CARBON DIOXIDE 30 mEQ/L (20-30); CHLORIDE 88 mEQ/L (98-107); CREATININE 0.8 mg/dL (0.5-0.9); GLOMERULAR FILTRATION RATE > 60 mL/min (>60); HEMOLYSIS 4; LIPASE 34 U/L (< 60); POTASSIUM 2.8 mEQ/L (3.4-4.9); SODIUM 132 mEQ/L (135-145); TOTAL PROTEIN 6.9 g/dL (6.6-8.7)
[2016-11-29 08:11] LABS: BILIRUBIN,DIRECT 0.3 mg/dL (0.1-0.3)
[2016-11-29] MEDS: Heparin 5000 units/ml inj SUBQ SCH ×2 (08:20→21:00)
[2016-11-29] MEDS: NS w/KCl 40mEq 1,000 ML IV SCH (09:02)
--- NOTE | 2016-11-29 09:23 | Diagnostic Imaging Report ---
Clinical Indication: Abdominal pain Technique: No oral contrast utilized, per emergency room physician request IV administration nonionic contrast. Venous phase spiral acquisition obtained through the abdomen and pelvis. Multiplanar reconstructions were generated. Total dose length product 1115 mGycm. CTDIvol(s) 19 mGy Comparison: None Findings: There is evidence of recent surgery, with a surgical staple line the right lower quadrant and underlying inflammatory changes. The right kidney is absent. Surgical clips are seen in the nephrectomy bed. There are also surgical clips in the anterior peritoneal space and deep within the pelvis. Bubbles of gas are seen in the anterior abdominal wall, presumably retained air within the surgical wound. A few bubbles of gas are also seen in the right lower quadrant. Some surgical clips are also seen in the right lower quadrant. There are extensively dilated small bowel loops. The stomach and duodenum are also distended. There is a transition point just to the left of midline in the upper pelvis, images 60 through 63 distal to the transition point, the small bowel is collapsed. The colon is nondistended. There is some fluid within the pelvis which appears to be intraperitoneal. There is also some free fluid adjacent to the tip of the right hepatic lobe. No definite diverticulosis or diverticulitis. The appendix is not demonstrated. There is a small umbilical hernia The liver is unremarkable. The gallbladder is not demonstrated, surgically absent. Bile ducts, pancreas, spleen, left adrenal, left kidney are unremarkable. The right adrenal is either absent or obscured by surrounding inflammatory changes No retroperitoneal or mesenteric mass or adenopathy. Uterus is not visualized. No pelvic mass or adenopathy. 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 There is a trace right pleural effusion. There are atelectatic changes at both lung bases. Impression: Evidence of recent surgery, as described. This may be a recent nephrectomy or recent appendectomy, as both appear to be absent. Correlate with surgical history Dilated small bowel loops with transition point in the anterior upper pelvis just left of midline. While findings could possibly be related to postoperative ileus, fairly abrupt transition raises concern for small bowel obstruction. Small amount of free intraperitoneal fluid this, likely related to recent surgery Other postsurgical changes, as described, including prior hysterectomy and cholecystectomy Small right pleural effusion with underlying parenchymal atelectatic changes. There are also atelectatic changes at the left lung base Other findings as noted, including small umbilical hernia This agrees with the preliminary interpretation provided overnight by Dr. Mensah The CT scanner at [facility] is accredited by the [employer] and the scans are performed using protocols designed to limit radiation exposure to as low as reasonably achievable to attain images of sufficient resolution adequate for diagnostic evaluation.
--- NOTE | 2016-11-29 11:47 | Consultation ---
DATE OF CONSULTATION: 11/29/2016 REASON FOR CONSULTATION: Ileus postoperative findings of the nephrectomy. HISTORY OF PRESENT ILLNESS: The patient is well known to me. She underwent laparoscopic nephrectomy on the last Monday uneventful postoperative course. She passed gas and had bowel movement and was released home and developed nausea and vomiting starting on Monday came to the emergency room on Monday with complaints of persistent nausea. Her blood work was normal. Her creatinine was 0.8. Her white count was 6.4. She had some leukocyte esterase and some bacteria in the urine. She was released from the emergency room and came back on Monday with the same complaints. CT scan was obtained showing dilated loops of small bowel to the pelvis suspected for ileus versus small-bowel obstruction. She was afebrile. She does not have any chills. She was not complaining of any abdominal distention. PAST MEDICAL HISTORY: Significant for hypertension, diabetes, and multiple episodes of renal stones. FAMILY HISTORY: Reviewed. MEDICATIONS: Reviewed. PHYSICAL EXAMINATION: GENERAL: She is currently afebrile. VITAL SIGNS: Stable. Neurologically intact. LUNGS: Clear to auscultation. CARDIOVASCULAR: Regular rate and rhythm. ABDOMEN: Soft, nontender in all quadrants, and nondistended. No CVA tenderness. LABORATORY DATA: Revealed normal white count, normal creatinine, and normal electrolytes. The patient has an NG tube that is putting out some greenish discharge in the small amounts 50 cubic centimeters in the canister. CT scan was reviewed also showing no evidence of bowel perforation, no evidence of abscesses, dilated loops of small bowel towards the pelvis with some abrupt transition with possible ileus versus possible bowel obstruction. ASSESSMENT AND PLAN: The patient is here with the postoperative ileus versus bowel obstruction. I would recommend conservative treatment for now. NG tube. Intravenous fluid replacement ambulation and follow up. Hopefully, the ileus will resolve and I will communicate with a generous surgery on the case as well as with the primary physician. Jose Swain M.D. DR: ROIX JOB#: [id number] CC:
--- NOTE | 2016-11-29 15:02 | Consultation ---
History of Present Illness General Date patient seen: Nov 29, 2016 Chief Complaint: n/v Reason for Consultation: sbo vs ileus Present Illness HPI 41 year old female who recently had an uncomplicated lap right nephrectomy on presents with nausea and emesis. patient did well post operative as per report and was discharged home on 11/25/2016 in stable condition. Patient states that she was well at discharge but soon after being at home she began to develop worsening nausea followed by emesis. She attempted liquid diet but was unable to tolerate liquids. she had significant sharp generalized abdominal pain that she rates 11/10. last flatus and BM were two days prior to admission. as symptoms worsened she came for evaluation and was admitted. CT scan performed identified dilated small bowel loops and possible transition point which could be ileus vs sbo. surgery called to evaluate. when seen at bedside patient states that she feels much better since NG tube was placed. pain improved. currently no nausea or emesis. no fever or chills. Allergies: Coded Allergies: NO KNOWN ALLERGIES (Verified Allergy, Unknown, 11/22/16) Medication History Scheduled Cephalexin* (Keflex*), 500 MG ORAL Q6H Citric Acid/Sodium Citrate (Virtrate-2 Oral Solution), 15 ML PO TID, (Reported) Insulin Glargine (Lantus), 30 SUBQ BEDTIME, (Reported) Insulin Glargine (Lantus), 25 SUBQ AM, (Reported) Metformin Hcl* (Metformin Hcl*), 500 MG ORAL TWICE A DAY, (Reported) Omeprazole (Omeprazole), 20 MG ORAL DAILY, (Reported) Pioglitazone Hcl* (Actos*), 30 MG ORAL DAILY, (Reported) Simvastatin (Zocor), 40 MG ORAL DAILY, (Reported) Scheduled PRN Ondansetron Odt* (Zofran Odt*), 4 MG ORAL Q6H PRN for Nausea & Vomiting Patient History History Provided By: Patient Healthcare decision maker Resuscitation status Advanced Directive on File Review of Systems Constitutional: Denies: chills, fever, malaise, no symptoms, other, see HPI, sweats, weakness Eye: Denies: acuity changes, blurred vision, discharge, double vision, eye pain , no symptoms, nose congestion, nose pain, other, see HPI, tearing ENT: Denies: ear discharge, ear pain, hearing loss, mouth pain, nasal discharge , no symptoms, nose congestion, nose pain, other, see HPI, throat pain, throat swelling Respiratory: Denies: BLANKENSHIP, cough, no symptoms, orthopnea, other, see HPI, shortness of breath, sputum, stridor, wheezing Cardiovascular: Denies: PND, chest pain, edema, no symptoms, other, palpitations, see HPI, syncope Gastrointestinal: Reports: abdominal pain, nausea, vomiting Genitourinary: Denies: discharge, dysuria, frequency, hematuria, incontinence, no symptoms, other, pain, retention, see HPI, urgency, vag bleed/dc Musculoskeletal: Denies: back pain, gout, joint pain, joint swelling, muscle pain, muscle stiffness, no symptoms, other, see HPI Skin: Denies: change in color, change in hair/nails, dryness, lesions, no symptoms, other, rash, see HPI Psychiatric: Denies: HI, SI, anxiety, depressed feelings, emotional problems, hallucinations, no symptoms, other, prior hx, see HPI Neurological: Denies: dizziness, focal weakness, headache, no symptoms, numbness, other, paresthesia, see HPI, seizure, syncope, tingling, tremors Endocrine: Denies: excessive sweating, flushing, increased thirst, increased urine, intolerance to temperature, no symptoms, other, see HPI, unexplained weight loss Hematologic/Lymphatic: Denies: anemia, blood clots, diathesis, easy bleeding, easy bruising, no symptoms, other, see HPI, swollen glands All Other Systems: negative except mentioned in HPI Physical Exam General Appearance: WD/WN, no apparent distress, alert Lines, tubes and drains: peripheral HEENT: normocephalic, atraumatic Neck: non-tender, normal alignment Respiratory/Chest: chest wall non-tender, lungs clear, normal breath sounds Cardiovascular/Chest: normal peripheral pulses, normal rate, regular rhythm Abdomen: non tender, soft, no organomegaly, no mass, hypoactive bowel sounds Extremities: normal range of motion, non-tender, normal inspection Skin Exam: normal pigmentation, warm/dry Neurologic: drainage inspector II-XII grossly normal, no motor/sensory deficits Last 24 Hour Vital Signs Date Time Temp Pulse Resp B/P Pulse Ox O2 Delivery O2 Flow Rate FiO2 11/29/16 14:26 98.1 11/29/16 12:00 98.1 100 21 116/78 100 Nasal Cannula 2.0 11/29/16 08:00 98.1 98 20 122/68 97 Nasal Cannula 2.0 11/29/16 04:00 98.8 106 16 124/71 96 Nasal Cannula 2.0 11/29/16 00:00 97.5 90 18 120/68 97 Nasal Cannula 2.0 11/28/16 23:37 87 16 120/71 98 Nasal Cannula 2.0 11/28/16 22:27 98.6 90 28 123/71 97 Nasal Cannula 2.0 11/28/16 21:22 98.3 11/28/16 20:28 88 23 126/69 99 Room Air 11/28/16 19:17 98.3 78 18 123/77 99 Room Air 11/28/16 18:28 98.2 79 20 128/85 99 Room Air Intake and Output 11/28/16 11/29/16 19:00 07:00 Intake Total 1000 ml Output Total 1400 ml Balance -400 ml Intake IV Total 1000 ml Gastric Drainage Total 1000 ml Emesis 400 ml # Voids 1 Laboratory Tests Test 11/28/16 18:59 11/29/16 05:45 White Blood Count 6.1 K/UL (4.8-10.8) 5.2 K/UL (4.8-10.8) Red Blood Count 4.04 M/UL (4.20-5.40) L 3.73 M/UL (4.20-5.40) L Hemoglobin 12.1 G/DL (12.0-16.0) 11.0 G/DL (12.0-16.0) L Hematocrit 35.5 % (37.0-47.0) L 33.3 % (37.0-47.0) L Mean Corpuscular Volume 88 FL (80-99) 89 FL (80-99) Mean Corpuscular Hemoglobin 30.0 PG (27.0-31.0) 29.5 PG (27.0-31.0) Mean Corpuscular Hemoglobin Concent 34.1 G/DL (32.0-36.0) 33.1 G/DL (32.0-36.0) Red Cell Distribution Width 11.4 % (11.6-14.8) L 12.0 % (11.6-14.8) Platelet Count 402 K/UL (150-450) 403 K/UL (150-450) Mean Platelet Volume 4.9 FL (6.5-10.1) L 4.8 FL (6.5-10.1) L Neutrophils (%) (Auto) 70.8 % (45.0-75.0) 68.3 % (45.0-75.0) Lymphocytes (%) (Auto) 19.3 % (20.0-45.0) L 19.3 % (20.0-45.0) L Monocytes (%) (Auto) 7.8 % (1.0-10.0) 9.8 % (1.0-10.0) Eosinophils (%) (Auto) 0.7 % (0.0-3.0) 1.4 % (0.0-3.0) Basophils (%) (Auto) 1.4 % (0.0-2.0) 1.1 % (0.0-2.0) Urine Color Yellow Urine Appearance Clear Urine pH 9 (4.5-8.0) Urine Specific [place]yer 1.015 (1.005-1.035) Urine Protein 2+ (NEGATIVE) H Urine Glucose (UA) Negative (NEGATIVE) Urine Ketones 4+ (NEGATIVE) H Urine Occult Blood Negative (NEGATIVE) Urine Nitrite Negative (NEGATIVE) Urine Bilirubin Negative (NEGATIVE) Urine Urobilinogen 4 MG/DL (0.0-1.0) H Urine Leukocyte Esterase 1+ (NEGATIVE) H Urine RBC 0-2 /HPF (0 - 2) Urine WBC 2-4 /HPF (0 - 2) Urine Squamous Epithelial Cells Few /LPF (NONE/OCC) Urine Bacteria Few /HPF (NONE) Urine HCG, Qualitative Negative Sodium Level 131 mEQ/L (135-145) L 132 mEQ/L (135-145) L Potassium Level 3.8 mEQ/L (3.4-4.9) 2.8 mEQ/L (3.4-4.9) L Chloride Level 86 mEQ/L (98-107) L 88 mEQ/L (98-107) L Carbon Dioxide Level 27 mEQ/L (20-30) 30 mEQ/L (20-30) Anion Gap 18 (5-15) H 14 (5-15) Blood Urea Nitrogen 12 mg/dL (7-23) 16 mg/dL (7-23) Creatinine 0.7 mg/dL (0.5-0.9) 0.8 mg/dL (0.5-0.9) Estimat Glomerular Filtration Rate > 60 mL/min (>60) > 60 mL/min (>60) Glucose Level 152 mg/dL (74-106) H 162 mg/dL (74-106) H Calcium Level 9.3 mg/dL (8.6-10.2) 8.8 mg/dL (8.6-10.2) Total Bilirubin 1.6 mg/dL (0.0-1.2) H 1.4 mg/dL (0.0-1.2) H Direct Bilirubin 0.4 mg/dL (0.1-0.3) H 0.3 mg/dL (0.1-0.3) Aspartate Amino Transf (AST/SGOT) 25 U/L (5-40) 24 U/L (5-40) Alanine Aminotransferase (ALT/SGPT) 15 U/L (3-33) 16 U/L (3-33) Alkaline Phosphatase 97 U/L (35-104) 97 U/L (35-104) Total Protein 7.6 g/dL (6.6-8.7) 6.9 g/dL (6.6-8.7) Albumin 3.8 g/dL (3.5-5.2) 3.6 g/dL (3.5-5.2) Globulin 3.8 g/dL 3.3 g/dL Albumin/Globulin Ratio 1.0 (1.0-2.7) 1.0 (1.0-2.7) Lipase 23 U/L (< 60) 34 U/L (< 60) Prothrombin Time 10.3 SEC (9.30-11.50) Prothromb Time International Ratio 1.0 (0.9-1.1) Activated Partial Thromboplast Time 25 SEC (23-33) Hemoglobin A1c 8.2 % (< 6.0) H Amylase Level 57 U/L (10-110) Thyroid Stimulating Hormone (TSH) 1.360 uIU/mL (0.300-4.500) Height (Feet): 5 Height (Inches): 10.00 Weight (Pounds): 230 Medications Current Medications Medications (Trade) Dose Ordered Sig/Triny Route PRN Reason Start Time Stop Time Status Last Admin Dose Admin Acetaminophen (Tylenol) 650 mg Q4H PRN ORAL fever 11/28/16 22:00 12/28/16 21:59 Al Hydroxide/Mg Hydroxide (Mylanta II) 30 ml Q6H PRN ORAL dyspepsia 11/28/16 22:00 12/28/16 21:59 Dextrose (Dextrose 50%) STAT PRN IV Hypoglycemia 11/28/16 22:00 12/28/16 21:59 Diphenhydramine HCl (Benadryl) 25 mg Q6H PRN ORAL Itching/Pruritis 11/28/16 22:00 12/28/16 21:59 Heparin Sodium (Porcine) (Heparin 5000 units/ml) 5,000 units EVERY 12 HOURS SUBQ 11/29/16 09:00 12/29/16 08:59 Influenza Virus Vaccine 0.5 ml 0.5 ml ONCE ONCE IM 11/29/16 16:00 11/29/16 16:01 Insulin Aspart (NovoLOG) BEFORE MEALS AND HS SUBQ 11/29/16 06:30 12/29/16 06:29 Ketorolac Tromethamine (Toradol 30mg) 30 mg Q6H PRN IV severe pain 11/29/16 01:15 12/04/16 01:14 11/29/16 13:56 Morphine Sulfate (Morphine Sulfate) 2 mg EVERY 4 HOURS PRN IVP severe Pain (Pain Scale 7-10) 11/28/16 22:00 12/05/16 21:59 Nitroglycerin (Ntg) 0.4 mg Q5M X 3 DOSES PRN SL Prn Chest Pain 11/28/16 22:00 12/28/16 21:59 Ondansetron HCl (Zofran) 4 mg Q6H PRN IVP Nausea & Vomiting 11/28/16 22:00 12/28/16 21:59 11/29/16 00:38 Polyethylene Glycol (Miralax) 17 gm HSPRN PRN ORAL Constipation 11/28/16 22:00 12/28/16 21:59 Sodium Chloride (NS w/KCl 40mEq) 1,000 ml @ 50 mls/hr Q20H IV 11/29/16 09:00 12/29/16 08:59 11/29/16 09:02 Temazepam (Restoril) 15 mg HSPRN PRN ORAL Insomnia 11/28/16 22:00 12/05/16 21:59 Assessment/Plan Problem List: (1) Small bowel obstruction ICD Codes: K56.69 - Other intestinal obstruction SNOMED: [id number] Status: doing well, stable Assessment/Plan 41 F with post op ileus vs sbo. improved since admission and ng tube decompression. NPO with IV fluids NG tube to low intermittent wall suction Will await return of bowel function No need for surgery at this time. will continue to follow with serial abdominal exams. will hopefully resolve soon. Tavo Yosusef MD Nov 29, 2016 15:02
--- NOTE | 2016-11-29 15:05 | Diagnostic Imaging Report ---
Indication: Abdominal pain Technique: Supine view of the abdomen Comparison: None Findings: There is a nasogastric tube in place, tip of which projects at the level of the gastric antrum. Surgical skin jorge are seen in the right pelvic region. Multiple surgical clips are seen in the abdomen. There are markedly dilated small bowel loops in the left side of the abdomen. This is difficult to compare to the prior CT is as a valid bird sitter image is not available. Contrast is seen within the bladder presumably from recent CT scan Impression: Persistent small bowel distention, may reflect ongoing small bowel obstruction or ileus. Further followup radiographs recommended as indicated clinically Satisfactory nasogastric intubation Other findings as noted
--- NOTE | 2016-11-29 15:25 | Diagnostic Imaging Report ---
Indication: Abdominal pain. Elevated function tests and renal function tests. Recent right nephrectomy Technique: Navarro-scale and duplex images of the upper abdomen were obtained Comparison: CT scan dated 11/28/2015 Findings: . Gallbladder is not demonstrated, nor was visualized on the recent CT. However, per technologist, patient denies prior cholecystectomy and reports that the gallbladder is contracted and difficult to visualize. . Common bile duct measures 8 mm in diameter. No intrahepatic biliary ductal dilatation. Liver demonstrates normal echogenicity, no focal abnormality. Portal vein and hepatic veins are patent.. Pancreas is incompletely visualized due to overlying bowel gas, visualized portions are unremarkable. Spleen is unremarkable. Left kidney measures 12 cm in length. Right kidney is surgically absent. Left kidney demonstrates normal echogenicity. There is no hydronephrosis. No focal abnormality. . Abdominal aorta is partially obscured by bowel gas, visualized portions are non-aneurysmal. There is trace ascites present. There is a small right-sided pleural effusion Impression: Nonvisualization of the gallbladder, consistent with findings on recent CT scan. Significance uncertain, as patient reportedly denies prior cholecystectomy Mild extrahepatic biliary ductal dilatation, not evident on recent CT scan. Correlate with liver function tests. If clinically indicated, consider MRCP for better characterization Surgically absent right kidney Trace ascites Small right pleural effusion Suboptimal visualization of the pancreas and abdominal aorta
--- NOTE | 2016-11-29 15:57 | GI Initial Consult Note ---
History of Present Illness General Date patient seen: Nov 29, 2016 Time patient seen: 13:00 Reason for Hospitalization: Vomiting Referring physician: CLAU EVANS Reason for Consultation: sbo vs ileus Present Illness HPI 41-year-old female presents to ED for evaluation of vomiting and weakness. Patient states that last week she had nephrectomy done here at [place]. Was discharged a few days later. States that after being discharged he was having abdominal pain and vomiting. Was seen in ER yesterday. Workup showed cystitis and was discharged with Keflex and Zofran. Patient states that the vomiting is persisting she came back to ER today. Denies any abdominal pain at this time. Denies any fevers or chills. No other aggravating or relieving factors. Denies any other associated symptoms GI CONSULT: HPI as noted above. GI consulted for SBO vs ilues. Surgical note reviewed >> no surgical intervention at this time. Abdomen assess; soft, non tender with normal bowel sounds all quad. Last BM noted per patient day prior to her nephrectomy. Pt also presents with anemia, elevated total bilirubin and negative lipase levels. APCT and Abd U/S as noted below. Procedure: CT Abdomen Pelvis w/Contrast Clinical Indication: Abdominal pain Impression: Evidence of recent surgery, as described. This may be a recent nephrectomy or recent appendectomy, as both appear to be absent. Correlate with surgical history Dilated small bowel loops with transition point in the anterior upper pelvis just left of midline. While findings could possibly be related to postoperative ileus , fairly abrupt transition raises concern for small bowel obstruction. Small amount of free intraperitoneal fluid this, likely related to recent surgery Other postsurgical changes, as described, including prior hysterectomy and cholecystectomy Small right pleural effusion with underlying parenchymal atelectatic changes. There are also atelectatic changes at the left lung base Other findings as noted, including small umbilical hernia Procedure: US ABD Complete Indication: Abdominal pain. Elevated function tests and renal function tests. Recent right nephrectomy Impression: Nonvisualization of the gallbladder, consistent with findings on recent CT scan. Significance uncertain, as patient reportedly denies prior cholecystectomy Mild extrahepatic biliary ductal dilatation, not evident on recent CT scan. Correlate with liver function tests. If clinically indicated, consider MRCP for better characterization Surgically absent right kidney Trace ascites Small right pleural effusion Suboptimal visualization of the pancreas and abdominal aorta Home Meds Active Scripts Ondansetron Odt* (ZOFRAN ODT*) 4 Mg Tab.rapdis, 4 MG ORAL Q6H Y for Nausea & Vomiting, #30 TAB 0 Refills Prov:CECILIA IBARRA M.D. 11/27/16 Cephalexin* (KEFLEX*) 500 Mg Capsule, 500 MG ORAL Q6H, #28 CAP 0 Refills Prov:CECILIA IBARRA M.D. 11/27/16 Reported Medications Citric Acid/Sodium Citrate (Virtrate-2 Oral Solution) 473 Ml Solution, 15 ML PO TID 11/22/16 Simvastatin (ZOCOR) 40 Mg Tablet, 40 MG ORAL DAILY, TAB 11/22/16 Omeprazole (OMEPRAZOLE) 20 Mg Capsule.dr, 20 MG ORAL DAILY, CAP 11/22/16 Pioglitazone Hcl* (ACTOS*) 30 Mg Tablet, 30 MG ORAL DAILY, TAB 11/22/16 Metformin Hcl* (METFORMIN HCL*) 500 Mg Tablet, 500 MG ORAL TWICE A DAY, TAB 11/22/16 Insulin Glargine (LANTUS) 100 Unit/1 Ml Insuln.pen, 25 SUBQ AM, #1 EA 0 Refills 11/22/16 Insulin Glargine (LANTUS) 100 Unit/1 Ml Insuln.pen, 30 SUBQ BEDTIME, #1 EA 0 Refills 11/22/16 Allergies: Coded Allergies: NO KNOWN ALLERGIES (Verified Allergy, Unknown, 11/22/16) Patient History History Provided By: Patient, Medical Record PMH Narrative Past Medical History: DM, asthma, GERD Past Surgical History: other - nephrectomy Pertinent Family History: none Social History: Denies: alcohol use, drug use, smoking Now: No Immunizations: UTD Reviewed Nursing Documentation: PMH: Agreed, PSxH: Agreed Nursing Documentation-PMH Hx Asthma: Yes Hx Diabetes: Yes Hx Cancer: No Hx Gastrointestinal Problems: Yes - GASTRITIS; CONSTIPATION;Nephrectomy Hx Neurological Problems: No Review of Systems All Other Systems: negative except mentioned in HPI Physical Exam Vital Signs Date Time Temp Pulse Resp B/P Pulse Ox O2 Delivery O2 Flow Rate FiO2 11/28/16 18:28 98.2 79 20 128/85 99 Room Air 11/28/16 22:27 2.0 Labs Laboratory Tests Test 11/28/16 18:59 11/29/16 05:45 White Blood Count 6.1 K/UL (4.8-10.8) 5.2 K/UL (4.8-10.8) Red Blood Count 4.04 M/UL (4.20-5.40) L 3.73 M/UL (4.20-5.40) L Hemoglobin 12.1 G/DL (12.0-16.0) 11.0 G/DL (12.0-16.0) L Hematocrit 35.5 % (37.0-47.0) L 33.3 % (37.0-47.0) L Mean Corpuscular Volume 88 FL (80-99) 89 FL (80-99) Mean Corpuscular Hemoglobin 30.0 PG (27.0-31.0) 29.5 PG (27.0-31.0) Mean Corpuscular Hemoglobin Concent 34.1 G/DL (32.0-36.0) 33.1 G/DL (32.0-36.0) Red Cell Distribution Width 11.4 % (11.6-14.8) L 12.0 % (11.6-14.8) Platelet Count 402 K/UL (150-450) 403 K/UL (150-450) Mean Platelet Volume 4.9 FL (6.5-10.1) L 4.8 FL (6.5-10.1) L Neutrophils (%) (Auto) 70.8 % (45.0-75.0) 68.3 % (45.0-75.0) Lymphocytes (%) (Auto) 19.3 % (20.0-45.0) L 19.3 % (20.0-45.0) L Monocytes (%) (Auto) 7.8 % (1.0-10.0) 9.8 % (1.0-10.0) Eosinophils (%) (Auto) 0.7 % (0.0-3.0) 1.4 % (0.0-3.0) Basophils (%) (Auto) 1.4 % (0.0-2.0) 1.1 % (0.0-2.0) Urine Color Yellow Urine Appearance Clear Urine pH 9 (4.5-8.0) Urine Specific [place] 1.015 (1.005-1.035) Urine Protein 2+ (NEGATIVE) H Urine Glucose (UA) Negative (NEGATIVE) Urine Ketones 4+ (NEGATIVE) H Urine Occult Blood Negative (NEGATIVE) Urine Nitrite Negative (NEGATIVE) Urine Bilirubin Negative (NEGATIVE) Urine Urobilinogen 4 MG/DL (0.0-1.0) H Urine Leukocyte Esterase 1+ (NEGATIVE) H Urine RBC 0-2 /HPF (0 - 2) Urine WBC 2-4 /HPF (0 - 2) Urine Squamous Epithelial Cells Few /LPF (NONE/OCC) Urine Bacteria Few /HPF (NONE) Urine HCG, Qualitative Negative Sodium Level 131 mEQ/L (135-145) L 132 mEQ/L (135-145) L Potassium Level 3.8 mEQ/L (3.4-4.9) 2.8 mEQ/L (3.4-4.9) L Chloride Level 86 mEQ/L (98-107) L 88 mEQ/L (98-107) L Carbon Dioxide Level 27 mEQ/L (20-30) 30 mEQ/L (20-30) Anion Gap 18 (5-15) H 14 (5-15) Blood Urea Nitrogen 12 mg/dL (7-23) 16 mg/dL (7-23) Creatinine 0.7 mg/dL (0.5-0.9) 0.8 mg/dL (0.5-0.9) Estimat Glomerular Filtration Rate > 60 mL/min (>60) > 60 mL/min (>60) Glucose Level 152 mg/dL (74-106) H 162 mg/dL (74-106) H Calcium Level 9.3 mg/dL (8.6-10.2) 8.8 mg/dL (8.6-10.2) Total Bilirubin 1.6 mg/dL (0.0-1.2) H 1.4 mg/dL (0.0-1.2) H Direct Bilirubin 0.4 mg/dL (0.1-0.3) H 0.3 mg/dL (0.1-0.3) Aspartate Amino Transf (AST/SGOT) 25 U/L (5-40) 24 U/L (5-40) Alanine Aminotransferase (ALT/SGPT) 15 U/L (3-33) 16 U/L (3-33) Alkaline Phosphatase 97 U/L (35-104) 97 U/L (35-104) Total Protein 7.6 g/dL (6.6-8.7) 6.9 g/dL (6.6-8.7) Albumin 3.8 g/dL (3.5-5.2) 3.6 g/dL (3.5-5.2) Globulin 3.8 g/dL 3.3 g/dL Albumin/Globulin Ratio 1.0 (1.0-2.7) 1.0 (1.0-2.7) Lipase 23 U/L (< 60) 34 U/L (< 60) Prothrombin Time 10.3 SEC (9.30-11.50) Prothromb Time International Ratio 1.0 (0.9-1.1) Activated Partial Thromboplast Time 25 SEC (23-33) Hemoglobin A1c 8.2 % (< 6.0) H Amylase Level 57 U/L (10-110) Thyroid Stimulating Hormone (TSH) 1.360 uIU/mL (0.300-4.500) General Appearance: well appearing, no apparent distress, alert, obese Head: normocephalic EENT: normal ENT inspection Neck: supple Respiratory: normal breath sounds, no respiratory distress Cardiovascular: normal rate Gastrointestinal: normal inspection, non tender, soft, normal bowel sounds Rectal: deferred Neurologic: normal inspection, alert, oriented x3, responsive Psychiatric: normal inspection, judgement/insight normal, memory normal Skin: normal inspection, normal color, no rash, warm/dry Current Medications Current Medications Medications (Trade) Dose Ordered Sig/Triny Route PRN Reason Start Time Stop Time Status Last Admin Dose Admin Acetaminophen (Tylenol) 650 mg Q4H PRN ORAL fever 11/28/16 22:00 12/28/16 21:59 Al Hydroxide/Mg Hydroxide (Mylanta II) 30 ml Q6H PRN ORAL dyspepsia 11/28/16 22:00 12/28/16 21:59 Dextrose (Dextrose 50%) STAT PRN IV Hypoglycemia 11/28/16 22:00 12/28/16 21:59 Diphenhydramine HCl (Benadryl) 25 mg Q6H PRN ORAL Itching/Pruritis 11/28/16 22:00 12/28/16 21:59 Heparin Sodium (Porcine) (Heparin 5000 units/ml) 5,000 units EVERY 12 HOURS SUBQ 11/29/16 09:00 12/29/16 08:59 Influenza Virus Vaccine 0.5 ml 0.5 ml ONCE ONCE IM 11/29/16 16:00 11/29/16 16:01 Insulin Aspart (NovoLOG) BEFORE MEALS AND HS SUBQ 11/29/16 06:30 12/29/16 06:29 Ketorolac Tromethamine (Toradol 30mg) 30 mg Q6H PRN IV severe pain 11/29/16 01:15 12/04/16 01:14 11/29/16 13:56 Morphine Sulfate (Morphine Sulfate) 2 mg EVERY 4 HOURS PRN IVP severe Pain (Pain Scale 7-10) 11/28/16 22:00 12/05/16 21:59 Nitroglycerin (Ntg) 0.4 mg Q5M X 3 DOSES PRN SL Prn Chest Pain 11/28/16 22:00 12/28/16 21:59 Ondansetron HCl (Zofran) 4 mg Q6H PRN IVP Nausea & Vomiting 11/28/16 22:00 12/28/16 21:59 11/29/16 00:38 Polyethylene Glycol (Miralax) 17 gm HSPRN PRN ORAL Constipation 11/28/16 22:00 12/28/16 21:59 Sodium Chloride (NS w/KCl 40mEq) 1,000 ml @ 50 mls/hr Q20H IV 11/29/16 09:00 12/29/16 08:59 11/29/16 09:02 Temazepam (Restoril) 15 mg HSPRN PRN ORAL Insomnia 11/28/16 22:00 12/05/16 21:59 GI: Plan Problems: (1) Postoperative ileus (2) Total bilirubin, elevated (3) Anemia (4) Small bowel obstruction (5) Vomiting Plan s/p Right Laparoscopic Nephrectomy Nov 23, 2016 07:49 surgical note reviewed >> no surgical intervention needed APCT >> While findings could possibly be related to postoperative ileus, fairly abrupt transition raises concern for small bowel obstruction. Abd US >> Mild extrahepatic biliary ductal dilatation treat conservatively bowel rest >> maintain NPO + IVFs, ok for ice chips bowel decompression >> NGT to LCIS repeat abd imaging studies electrolyte replacement pain mgmt fu labs Discussed with Dr. Pires. Thank you for referring this patient, we will follow. Rose Schroeder N.P. 24, 2017 15:57
[2016-11-29] MEDS ORDERED: Influenza Virus Vaccine 0.5ml IM ONE (16:00)
--- NOTE | 2016-11-29 18:23 | History and Physical ---
History of Present Illness General Date patient seen: Nov 29, 2016 Reason for Hospitalization: Vomiting Present Illness HPI 41-year-old female who had last week nephrectomy done here at [facility] presented to ED for evaluation of vomiting and weakness. She started having abdominal pain and vomiting right after discharge . the vomiting is persisting so she came back to ER yesterday . He is admitted for intractable vomiting. Allergies: Coded Allergies: NO KNOWN ALLERGIES (Verified Allergy, Unknown, 11/22/16) Medication History Scheduled Cephalexin* (Keflex*), 500 MG ORAL Q6H Citric Acid/Sodium Citrate (Virtrate-2 Oral Solution), 15 ML PO TID, (Reported) Insulin Glargine (Lantus), 30 SUBQ BEDTIME, (Reported) Insulin Glargine (Lantus), 25 SUBQ AM, (Reported) Metformin Hcl* (Metformin Hcl*), 500 MG ORAL TWICE A DAY, (Reported) Omeprazole (Omeprazole), 20 MG ORAL DAILY, (Reported) Pioglitazone Hcl* (Actos*), 30 MG ORAL DAILY, (Reported) Simvastatin (Zocor), 40 MG ORAL DAILY, (Reported) Scheduled PRN Ondansetron Odt* (Zofran Odt*), 4 MG ORAL Q6H PRN for Nausea & Vomiting Patient History Healthcare decision maker Resuscitation status Advanced Directive on File Past Medical/Surgical History Past Medical/Surgical History: (1) Postoperative ileus (2) Vomiting Review of Systems Gastrointestinal: Reports: nausea, vomiting Physical Exam Lines, tubes and drains: peripheral, central line HEENT: normocephalic, atraumatic Neck: non-tender, normal alignment Respiratory/Chest: chest wall non-tender, lungs clear Cardiovascular/Chest: normal peripheral pulses, normal rate Abdomen: normal bowel sounds, non tender Genitourinary/Rectal: normal genital exam, normal rectal exam Extremities: normal range of motion, non-tender Skin Exam: normal pigmentation 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, no motor/sensory deficits Lymphatic: anterior cervical Last 24 Hour Vital Signs Date Time Temp Pulse Resp B/P Pulse Ox O2 Delivery O2 Flow Rate FiO2 11/29/16 18:05 98.1 11/29/16 16:56 95 Nasal Cannula 2.0 28 11/29/16 16:56 Nasal Cannula 2.0 28 11/29/16 16:00 98.1 97 22 127/73 93 Nasal Cannula 2.0 11/29/16 14:26 98.1 11/29/16 12:00 98.1 100 21 116/78 100 Nasal Cannula 2.0 11/29/16 08:00 98.1 98 20 122/68 97 Nasal Cannula 2.0 11/29/16 04:00 98.8 106 16 124/71 96 Nasal Cannula 2.0 11/29/16 00:00 97.5 90 18 120/68 97 Nasal Cannula 2.0 11/28/16 23:37 87 16 120/71 98 Nasal Cannula 2.0 11/28/16 22:27 98.6 90 28 123/71 97 Nasal Cannula 2.0 11/28/16 21:22 98.3 11/28/16 20:28 88 23 126/69 99 Room Air 11/28/16 19:17 98.3 78 18 123/77 99 Room Air 11/28/16 18:28 98.2 79 20 128/85 99 Room Air Intake and Output 11/28/16 11/29/16 19:00 07:00 Intake Total 1000 ml Output Total 1400 ml Balance -400 ml Intake IV Total 1000 ml Gastric Drainage Total 1000 ml Emesis 400 ml # Voids 1 Laboratory Tests Test 11/28/16 18:59 11/29/16 05:45 White Blood Count 6.1 K/UL (4.8-10.8) 5.2 K/UL (4.8-10.8) Red Blood Count 4.04 M/UL (4.20-5.40) L 3.73 M/UL (4.20-5.40) L Hemoglobin 12.1 G/DL (12.0-16.0) 11.0 G/DL (12.0-16.0) L Hematocrit 35.5 % (37.0-47.0) L 33.3 % (37.0-47.0) L Mean Corpuscular Volume 88 FL (80-99) 89 FL (80-99) Mean Corpuscular Hemoglobin 30.0 PG (27.0-31.0) 29.5 PG (27.0-31.0) Mean Corpuscular Hemoglobin Concent 34.1 G/DL (32.0-36.0) 33.1 G/DL (32.0-36.0) Red Cell Distribution Width 11.4 % (11.6-14.8) L 12.0 % (11.6-14.8) Platelet Count 402 K/UL (150-450) 403 K/UL (150-450) Mean Platelet Volume 4.9 FL (6.5-10.1) L 4.8 FL (6.5-10.1) L Neutrophils (%) (Auto) 70.8 % (45.0-75.0) 68.3 % (45.0-75.0) Lymphocytes (%) (Auto) 19.3 % (20.0-45.0) L 19.3 % (20.0-45.0) L Monocytes (%) (Auto) 7.8 % (1.0-10.0) 9.8 % (1.0-10.0) Eosinophils (%) (Auto) 0.7 % (0.0-3.0) 1.4 % (0.0-3.0) Basophils (%) (Auto) 1.4 % (0.0-2.0) 1.1 % (0.0-2.0) Urine Color Yellow Urine Appearance Clear Urine pH 9 (4.5-8.0) Urine Specific [place] 1.015 (1.005-1.035) Urine Protein 2+ (NEGATIVE) H Urine Glucose (UA) Negative (NEGATIVE) Urine Ketones 4+ (NEGATIVE) H Urine Occult Blood Negative (NEGATIVE) Urine Nitrite Negative (NEGATIVE) Urine Bilirubin Negative (NEGATIVE) Urine Urobilinogen 4 MG/DL (0.0-1.0) H Urine Leukocyte Esterase 1+ (NEGATIVE) H Urine RBC 0-2 /HPF (0 - 2) Urine WBC 2-4 /HPF (0 - 2) Urine Squamous Epithelial Cells Few /LPF (NONE/OCC) Urine Bacteria Few /HPF (NONE) Urine HCG, Qualitative Negative Sodium Level 131 mEQ/L (135-145) L 132 mEQ/L (135-145) L Potassium Level 3.8 mEQ/L (3.4-4.9) 2.8 mEQ/L (3.4-4.9) L Chloride Level 86 mEQ/L (98-107) L 88 mEQ/L (98-107) L Carbon Dioxide Level 27 mEQ/L (20-30) 30 mEQ/L (20-30) Anion Gap 18 (5-15) H 14 (5-15) Blood Urea Nitrogen 12 mg/dL (7-23) 16 mg/dL (7-23) Creatinine 0.7 mg/dL (0.5-0.9) 0.8 mg/dL (0.5-0.9) Estimat Glomerular Filtration Rate > 60 mL/min (>60) > 60 mL/min (>60) Glucose Level 152 mg/dL (74-106) H 162 mg/dL (74-106) H Calcium Level 9.3 mg/dL (8.6-10.2) 8.8 mg/dL (8.6-10.2) Total Bilirubin 1.6 mg/dL (0.0-1.2) H 1.4 mg/dL (0.0-1.2) H Direct Bilirubin 0.4 mg/dL (0.1-0.3) H 0.3 mg/dL (0.1-0.3) Aspartate Amino Transf (AST/SGOT) 25 U/L (5-40) 24 U/L (5-40) Alanine Aminotransferase (ALT/SGPT) 15 U/L (3-33) 16 U/L (3-33) Alkaline Phosphatase 97 U/L (35-104) 97 U/L (35-104) Total Protein 7.6 g/dL (6.6-8.7) 6.9 g/dL (6.6-8.7) Albumin 3.8 g/dL (3.5-5.2) 3.6 g/dL (3.5-5.2) Globulin 3.8 g/dL 3.3 g/dL Albumin/Globulin Ratio 1.0 (1.0-2.7) 1.0 (1.0-2.7) Lipase 23 U/L (< 60) 34 U/L (< 60) Prothrombin Time 10.3 SEC (9.30-11.50) Prothromb Time International Ratio 1.0 (0.9-1.1) Activated Partial Thromboplast Time 25 SEC (23-33) Hemoglobin A1c 8.2 % (< 6.0) H Amylase Level 57 U/L (10-110) Thyroid Stimulating Hormone (TSH) 1.360 uIU/mL (0.300-4.500) Height (Feet): 5 Height (Inches): 10.00 Weight (Pounds): 230 Medications Current Medications Medications (Trade) Dose Ordered Sig/Triny Route PRN Reason Start Time Stop Time Status Last Admin Dose Admin Acetaminophen (Tylenol) 650 mg Q4H PRN ORAL fever 11/28/16 22:00 12/28/16 21:59 Al Hydroxide/Mg Hydroxide (Mylanta II) 30 ml Q6H PRN ORAL dyspepsia 11/28/16 22:00 12/28/16 21:59 Dextrose (Dextrose 50%) STAT PRN IV Hypoglycemia 11/28/16 22:00 12/28/16 21:59 Diphenhydramine HCl (Benadryl) 25 mg Q6H PRN ORAL Itching/Pruritis 11/28/16 22:00 12/28/16 21:59 Heparin Sodium (Porcine) (Heparin 5000 units/ml) 5,000 units EVERY 12 HOURS SUBQ 11/29/16 09:00 12/29/16 08:59 Insulin Aspart (NovoLOG) BEFORE MEALS AND HS SUBQ 11/29/16 06:30 12/29/16 06:29 Ketorolac Tromethamine 30 mg 30 mg Q6H PRN IV severe pain 11/29/16 01:15 12/04/16 01:14 11/29/16 13:56 Morphine Sulfate (Morphine Sulfate) 2 mg EVERY 4 HOURS PRN IVP severe Pain (Pain Scale 7-10) 11/28/16 22:00 12/05/16 21:59 11/29/16 16:44 Nitroglycerin (Ntg) 0.4 mg Q5M X 3 DOSES PRN SL Prn Chest Pain 11/28/16 22:00 12/28/16 21:59 Ondansetron HCl (Zofran) 4 mg Q6H PRN IVP Nausea & Vomiting 11/28/16 22:00 12/28/16 21:59 11/29/16 00:38 Polyethylene Glycol (Miralax) 17 gm HSPRN PRN ORAL Constipation 11/28/16 22:00 12/28/16 21:59 Sodium Chloride (NS w/KCl 40mEq) 1,000 ml @ 50 mls/hr Q20H IV 11/29/16 09:00 2/23/17 08:59 11/29/16 09:02 Temazepam (Restoril) 15 mg HSPRN PRN ORAL Insomnia 11/28/16 22:00 12/05/16 21:59 Assessment/Plan Problem List: (1) Postoperative ileus ICD Codes: K91.3 - Postprocedural intestinal obstruction SNOMED: 686166776 (2) Small bowel obstruction ICD Codes: K56.69 - Other intestinal obstruction SNOMED: 849362435 Assessment/Plan NPO IV fluids surgical consult check electrolytes symptomatic treatment CLAU EVANS Nov 29, 2016 18:23
[2016-11-30] MEDS: NS w/KCl 40mEq 1,000 ML IV SCH (03:49)
[2016-11-30 03:52] VITALS: BP 132/73
[2016-11-30] MEDS: Ketorolac 30mg Inj IV PRN ×2 (04:20→21:42)
[2016-11-30] MEDS: NovoLOG Insulin Flexpen SUBQ SCH ×4 (06:17→21:53)
[2016-11-30 07:16] LABS: BASOPHILS % (AUTO) 1.1 % (0.0-2.0); EOSINOPHILS % (AUTO) 1.2 % (0.0-3.0); LYMPHOCYTES % (AUTO) 13.4 % (20.0-45.0); MEAN CORPUSCULAR HGB CONC 32.4 G/DL (32.0-36.0); MEAN CORPUSCULAR VOLUME 90 FL (80-99); MEAN PLATELET VOLUME 4.5 FL (6.5-10.1); MONOCYTES % (AUTO) 7.8 % (1.0-10.0); NEUTROPHILS % (AUTO) 76.5 % (45.0-75.0); PLATELET COUNT 489 K/UL (150-450); RED BLOOD COUNT 3.94 M/UL (4.20-5.40); RED CELL DISTRIBUTION WIDTH 12.2 % (11.6-14.8); WHITE BLOOD COUNT 5.7 K/UL (4.8-10.8)
[2016-11-30 07:28] LABS: ALANINE AMINOTRANSFERASE 21 U/L (3-33); ANION GAP 14 (5-15); ASPARTATE AMINO TRANSFERASE 33 U/L (5-40); CALCIUM 8.8 mg/dL (8.6-10.2); CARBON DIOXIDE 32 mEQ/L (20-30); CHLORIDE 93 mEQ/L (98-107); CREATININE 0.7 mg/dL (0.5-0.9); GLOMERULAR FILTRATION RATE > 60 mL/min (>60); HEMOLYSIS 2; MAGNESIUM 2.1 mg/dL (1.7-2.5); POTASSIUM 3.2 mEQ/L (3.4-4.9); SODIUM 139 mEQ/L (135-145)
[2016-11-30 08:00] VITALS: BP 135/75
[2016-11-30 08:02] LABS: BILIRUBIN,DIRECT 0.4 mg/dL (0.1-0.3)
[2016-11-30] MEDS: Heparin 5000 units/ml inj SUBQ SCH ×2 (08:51→21:54)
--- NOTE | 2016-11-30 09:38 | General Progress Note ---
Subjective Gastrointestinal/Abdominal: Reports: other - passed some gas today no BM Genitourinary: Reports: no symptoms Allergies: Coded Allergies: NO KNOWN ALLERGIES (Verified Allergy, Unknown, 11/22/16) All Systems: reviewed and negative except above Objective Last 24 Hour Vital Signs Date Time Temp Pulse Resp B/P Pulse Ox O2 Delivery O2 Flow Rate FiO2 11/30/16 08:10 Nasal Cannula 2.0 28 11/30/16 08:10 96 Nasal Cannula 2.0 28 11/30/16 08:00 97.9 83 19 135/75 95 Room Air 11/30/16 03:52 98.1 103 20 132/73 98 Room Air 11/29/16 23:59 98.5 100 22 122/72 93 Room Air 11/29/16 20:13 97.9 96 21 127/76 91 Room Air 11/29/16 18:05 98.1 11/29/16 16:56 95 Nasal Cannula 2.0 28 11/29/16 16:56 Nasal Cannula 2.0 28 11/29/16 16:00 98.1 97 22 127/73 93 Nasal Cannula 2.0 11/29/16 14:26 98.1 11/29/16 12:00 98.1 100 21 116/78 100 Nasal Cannula 2.0 Intake and Output 11/29/16 11/30/16 19:00 07:00 Intake Total 250 ml 350 ml Output Total 850 ml 1900 ml Balance -600 ml -1550 ml Intake IV Total 250 ml 350 ml Output Urine Total 375 ml 1100 ml Other 475 ml 800 ml # Voids 1 4 Laboratory Tests 11/30/16 06:10: White Blood Count 5.7, Red Blood Count 3.94L, Hemoglobin 11.4L, Hematocrit 35.3L , Mean Corpuscular Volume 90, Mean Corpuscular Hemoglobin 29.0, Mean Corpuscular Hemoglobin Concent 32.4, Red Cell Distribution Width 12.2, Platelet Count 489H, Mean Platelet Volume 4.5L, Neutrophils (%) (Auto) 76.5H, Lymphocytes (%) (Auto) 13.4L, Monocytes (%) (Auto) 7.8, Eosinophils (%) (Auto) 1.2, Basophils (%) (Auto) 1.1, Sodium Level 139, Potassium Level 3.2L, Chloride Level 93L, Carbon Dioxide Level 32H, Anion Gap 14, Blood Urea Nitrogen 17, Creatinine 0.7, Estimat Glomerular Filtration Rate > 60, Glucose Level 124H, Calcium Level 8.8, Phosphorus Level 3.0, Magnesium Level 2.1, Total Bilirubin 1.3H, Direct Bilirubin 0.4H, Aspartate Amino Transf (AST/SGOT) 33, Alanine Aminotransferase (ALT/SGPT) 21, Alkaline Phosphatase 101, Total Protein 7.0, Albumin 3.5, Globulin 3.5, Albumin/Globulin Ratio 1.0 Height (Feet): 5 Height (Inches): 10.00 Weight (Pounds): 230 Jose Swain MD Nov 30, 2016 09:38
--- NOTE | 2016-11-30 09:49 | General Surgery Progress Note ---
General Surgery-Progress Note Subjective Reason for Consult sbo vs ileus Chief Complaint: n/v Symptoms: improved, passing flatus Additional Comments patient seen and examined. no acute events. doing well. improved. pain improved. no n/v today. no f/c. +flatus this AM. NG tube output clear / gastric contents today. tolerating ice chips Objective Last 24 Hour Vital Signs Date Time Temp Pulse Resp B/P Pulse Ox O2 Delivery O2 Flow Rate FiO2 11/30/16 08:10 Nasal Cannula 2.0 28 11/30/16 08:10 96 Nasal Cannula 2.0 28 11/30/16 08:00 97.9 83 19 135/75 95 Room Air 11/30/16 03:52 98.1 103 20 132/73 98 Room Air 11/29/16 23:59 98.5 100 22 122/72 93 Room Air 11/29/16 20:13 97.9 96 21 127/76 91 Room Air 11/29/16 18:05 98.1 11/29/16 16:56 95 Nasal Cannula 2.0 28 11/29/16 16:56 Nasal Cannula 2.0 28 11/29/16 16:00 98.1 97 22 127/73 93 Nasal Cannula 2.0 11/29/16 14:26 98.1 11/29/16 12:00 98.1 100 21 116/78 100 Nasal Cannula 2.0 I&O Intake and Output 11/29/16 11/30/16 19:00 07:00 Intake Total 250 ml 350 ml Output Total 850 ml 1900 ml Balance -600 ml -1550 ml Intake IV Total 250 ml 350 ml Output Urine Total 375 ml 1100 ml Other 475 ml 800 ml # Voids 1 4 Wound: clean Drains: none Cardiovascular: RSR Respiratory: clear Abdomen: soft, non-tender, present bowel sounds Extremities: no edema, no tenderness Laboratory Tests Test 11/30/16 06:10 White Blood Count 5.7 K/UL (4.8-10.8) Red Blood Count 3.94 M/UL (4.20-5.40) L Hemoglobin 11.4 G/DL (12.0-16.0) L Hematocrit 35.3 % (37.0-47.0) L Mean Corpuscular Volume 90 FL (80-99) Mean Corpuscular Hemoglobin 29.0 PG (27.0-31.0) Mean Corpuscular Hemoglobin Concent 32.4 G/DL (32.0-36.0) Red Cell Distribution Width 12.2 % (11.6-14.8) Platelet Count 489 K/UL (150-450) H Mean Platelet Volume 4.5 FL (6.5-10.1) L Neutrophils (%) (Auto) 76.5 % (45.0-75.0) H Lymphocytes (%) (Auto) 13.4 % (20.0-45.0) L Monocytes (%) (Auto) 7.8 % (1.0-10.0) Eosinophils (%) (Auto) 1.2 % (0.0-3.0) Basophils (%) (Auto) 1.1 % (0.0-2.0) Sodium Level 139 mEQ/L (135-145) Potassium Level 3.2 mEQ/L (3.4-4.9) L Chloride Level 93 mEQ/L (98-107) L Carbon Dioxide Level 32 mEQ/L (20-30) H Anion Gap 14 (5-15) Blood Urea Nitrogen 17 mg/dL (7-23) Creatinine 0.7 mg/dL (0.5-0.9) Estimat Glomerular Filtration Rate > 60 mL/min (>60) Glucose Level 124 mg/dL (74-106) H Calcium Level 8.8 mg/dL (8.6-10.2) Phosphorus Level 3.0 mg/dL (2.5-4.8) Magnesium Level 2.1 mg/dL (1.7-2.5) Total Bilirubin 1.3 mg/dL (0.0-1.2) H Direct Bilirubin 0.4 mg/dL (0.1-0.3) H Aspartate Amino Transf (AST/SGOT) 33 U/L (5-40) Alanine Aminotransferase (ALT/SGPT) 21 U/L (3-33) Alkaline Phosphatase 101 U/L (35-104) Total Protein 7.0 g/dL (6.6-8.7) Albumin 3.5 g/dL (3.5-5.2) Globulin 3.5 g/dL Albumin/Globulin Ratio 1.0 (1.0-2.7) Assessment Post-op Diagnosis 41 F s/p lap right nephrectomy. was discharged home post op in stable condition. returned with abdominal pain, nausea and emesis. Now improved. radiographic and clinic evaluation consistent with ileus. ileus now resolving with improved ng tube output and recent flatus. Plan Problems: (1) Small bowel obstruction Assessment & Plan: continue with current care and management. NPO with IV fluids NG tube to Low intermittent wall suction awaiting further return of bowel function. once more consistent flatus, can attempt NG tube clamp trials then d/c NG tube if output low. Goal is to d/c NG tube tomorrow and start liquid diet tomorrow as long as she continues to improve. Tavo Youssef MD Nov 30, 2016 09:49
[2016-11-30 11:58] VITALS: BP 134/75
[2016-11-30] MEDS ORDERED: Potassium Chloride 40 MEQ in Sodium Chloride 550 ML IV ONE (13:00)
--- NOTE | 2016-11-30 13:50 | GI Progress Note ---
Assessment/Plan Problems: (1) Postoperative ileus ICD Codes: K91.3 - Postprocedural intestinal obstruction SNOMED: 915485555 (2) Total bilirubin, elevated ICD Codes: R17 - Unspecified jaundice SNOMED: 800319178076677 (3) Anemia ICD Codes: D64.9 - Anemia, unspecified SNOMED: 536508641 (4) Vomiting ICD Codes: R11.10 - Vomiting, unspecified SNOMED: 028779103 Status: progressing Status Narrative Discussed with Dr. Pires. Assessment/Plan s/p Right Laparoscopic Nephrectomy Nov 23, 2016 07:49 surgical note reviewed >> no surgical intervention needed APCT >> While findings could possibly be related to postoperative ileus, fairly abrupt transition raises concern for small bowel obstruction. Abd US >> Mild extrahepatic biliary ductal dilatation treat conservatively bowel rest >> adv to CLD bowel decompression >> clamp NGT today encourage ambulation repeat abd imaging studies electrolyte replacement pain mgmt fu labs Subjective Subjective passing gas x 3 small bm x 1 patient has been ambulating denies abdominal pain Objective Last 24 Hour Vital Signs Date Time Temp Pulse Resp B/P Pulse Ox O2 Delivery O2 Flow Rate FiO2 11/30/16 11:58 97.7 91 18 134/75 97 Room Air 11/30/16 08:10 Nasal Cannula 2.0 28 11/30/16 08:10 96 Nasal Cannula 2.0 28 11/30/16 08:00 97.9 83 19 135/75 95 Room Air 11/30/16 03:52 98.1 103 20 132/73 98 Room Air 11/29/16 23:59 98.5 100 22 122/72 93 Room Air 11/29/16 20:13 97.9 96 21 127/76 91 Room Air 11/29/16 18:05 98.1 11/29/16 16:56 95 Nasal Cannula 2.0 28 11/29/16 16:56 Nasal Cannula 2.0 28 11/29/16 16:00 98.1 97 22 127/73 93 Nasal Cannula 2.0 11/29/16 14:26 98.1 Intake and Output 11/29/16 11/30/16 19:00 07:00 Intake Total 250 ml 350 ml Output Total 850 ml 1900 ml Balance -600 ml -1550 ml Intake IV Total 250 ml 350 ml Output Urine Total 375 ml 1100 ml Other 475 ml 800 ml # Voids 1 4 Laboratory Tests Test 11/30/16 06:10 White Blood Count 5.7 K/UL (4.8-10.8) Red Blood Count 3.94 M/UL (4.20-5.40) L Hemoglobin 11.4 G/DL (12.0-16.0) L Hematocrit 35.3 % (37.0-47.0) L Mean Corpuscular Volume 90 FL (80-99) Mean Corpuscular Hemoglobin 29.0 PG (27.0-31.0) Mean Corpuscular Hemoglobin Concent 32.4 G/DL (32.0-36.0) Red Cell Distribution Width 12.2 % (11.6-14.8) Platelet Count 489 K/UL (150-450) H Mean Platelet Volume 4.5 FL (6.5-10.1) L Neutrophils (%) (Auto) 76.5 % (45.0-75.0) H Lymphocytes (%) (Auto) 13.4 % (20.0-45.0) L Monocytes (%) (Auto) 7.8 % (1.0-10.0) Eosinophils (%) (Auto) 1.2 % (0.0-3.0) Basophils (%) (Auto) 1.1 % (0.0-2.0) Sodium Level 139 mEQ/L (135-145) Potassium Level 3.2 mEQ/L (3.4-4.9) L Chloride Level 93 mEQ/L (98-107) L Carbon Dioxide Level 32 mEQ/L (20-30) H Anion Gap 14 (5-15) Blood Urea Nitrogen 17 mg/dL (7-23) Creatinine 0.7 mg/dL (0.5-0.9) Estimat Glomerular Filtration Rate > 60 mL/min (>60) Glucose Level 124 mg/dL (74-106) H Calcium Level 8.8 mg/dL (8.6-10.2) Phosphorus Level 3.0 mg/dL (2.5-4.8) Magnesium Level 2.1 mg/dL (1.7-2.5) Total Bilirubin 1.3 mg/dL (0.0-1.2) H Direct Bilirubin 0.4 mg/dL (0.1-0.3) H Aspartate Amino Transf (AST/SGOT) 33 U/L (5-40) Alanine Aminotransferase (ALT/SGPT) 21 U/L (3-33) Alkaline Phosphatase 101 U/L (35-104) Total Protein 7.0 g/dL (6.6-8.7) Albumin 3.5 g/dL (3.5-5.2) Globulin 3.5 g/dL Albumin/Globulin Ratio 1.0 (1.0-2.7) Height (Feet): 5 Height (Inches): 10.00 Weight (Pounds): 230 General Appearance: no apparent distress, alert, obese Cardiovascular: normal rate Respiratory/Chest: normal breath sounds, no respiratory distress Abdominal Exam: normal bowel sounds, non tender, soft Extremities: normal range of motion Rose Schroeder N.P. Nov 30, 2016 13:50
[2016-11-30 16:05] VITALS: BP 125/71
--- NOTE | 2016-11-30 16:27 | Pulmonology Progress Note ---
Assessment/Plan Problems: (1) Postoperative ileus (2) Small bowel obstruction Assessment/Plan improving iv fluids check electrolytes Subjective ROS Limited/Unobtainable: No Interval Events: NG tube is out, started on oral feeding Allergies: Coded Allergies: NO KNOWN ALLERGIES (Verified Allergy, Unknown, 11/22/16) Objective Last 24 Hour Vital Signs Date Time Temp Pulse Resp B/P Pulse Ox O2 Delivery O2 Flow Rate FiO2 11/30/16 16:05 98.1 85 18 125/71 93 Room Air 11/30/16 11:58 97.7 91 18 134/75 97 Room Air 11/30/16 08:10 Nasal Cannula 2.0 28 11/30/16 08:10 96 Nasal Cannula 2.0 28 11/30/16 08:00 97.9 83 19 135/75 95 Room Air 11/30/16 03:52 98.1 103 20 132/73 98 Room Air 11/29/16 23:59 98.5 100 22 122/72 93 Room Air 11/29/16 20:13 97.9 96 21 127/76 91 Room Air 11/29/16 18:05 98.1 11/29/16 16:56 95 Nasal Cannula 2.0 28 11/29/16 16:56 Nasal Cannula 2.0 28 Intake and Output 11/29/16 11/30/16 19:00 07:00 Intake Total 250 ml 350 ml Output Total 850 ml 1900 ml Balance -600 ml -1550 ml Intake IV Total 250 ml 350 ml Output Urine Total 375 ml 1100 ml Other 475 ml 800 ml # Voids 1 4 General Appearance: WD/WN HEENT: normocephalic, atraumatic Respiratory/Chest: chest wall non-tender, normal breath sounds Cardiovascular: normal peripheral pulses, normal rate Abdomen: normal bowel sounds, soft, non tender Extremities: no cyanosis Laboratory Tests 11/30/16 06:10: White Blood Count 5.7, Red Blood Count 3.94L, Hemoglobin 11.4L, Hematocrit 35.3L , Mean Corpuscular Volume 90, Mean Corpuscular Hemoglobin 29.0, Mean Corpuscular Hemoglobin Concent 32.4, Red Cell Distribution Width 12.2, Platelet Count 489H, Mean Platelet Volume 4.5L, Neutrophils (%) (Auto) 76.5H, Lymphocytes (%) (Auto) 13.4L, Monocytes (%) (Auto) 7.8, Eosinophils (%) (Auto) 1.2, Basophils (%) (Auto) 1.1, Sodium Level 139, Potassium Level 3.2L, Chloride Level 93L, Carbon Dioxide Level 32H, Anion Gap 14, Blood Urea Nitrogen 17, Creatinine 0.7, Estimat Glomerular Filtration Rate > 60, Glucose Level 124H, Calcium Level 8.8, Phosphorus Level 3.0, Magnesium Level 2.1, Total Bilirubin 1.3H, Direct Bilirubin 0.4H, Aspartate Amino Transf (AST/SGOT) 33, Alanine Aminotransferase (ALT/SGPT) 21, Alkaline Phosphatase 101, Total Protein 7.0, Albumin 3.5, Globulin 3.5, Albumin/Globulin Ratio 1.0 Current Medications Medications (Trade) Dose Ordered Sig/Triny Route PRN Reason Start Time Stop Time Status Last Admin Dose Admin Acetaminophen (Tylenol) 650 mg Q4H PRN ORAL fever 11/28/16 22:00 12/28/16 21:59 Al Hydroxide/Mg Hydroxide (Mylanta II) 30 ml Q6H PRN ORAL dyspepsia 11/28/16 22:00 12/28/16 21:59 Dextrose (Dextrose 50%) STAT PRN IV Hypoglycemia 11/28/16 22:00 12/28/16 21:59 Diphenhydramine HCl (Benadryl) 25 mg Q6H PRN ORAL Itching/Pruritis 11/28/16 22:00 12/28/16 21:59 Heparin Sodium (Porcine) (Heparin 5000 units/ml) 5,000 units EVERY 12 HOURS SUBQ 11/29/16 09:00 12/29/16 08:59 11/30/16 08:51 Insulin Aspart (NovoLOG) BEFORE MEALS AND HS SUBQ 11/29/16 06:30 12/29/16 06:29 11/30/16 11:30 Ketorolac Tromethamine 30 mg 30 mg Q6H PRN IV severe pain 11/29/16 01:15 12/04/16 01:14 11/30/16 04:20 Morphine Sulfate (Morphine Sulfate) 2 mg EVERY 4 HOURS PRN IVP severe Pain (Pain Scale 7-10) 11/28/16 22:00 12/05/16 21:59 11/29/16 16:44 Nitroglycerin (Ntg) 0.4 mg Q5M X 3 DOSES PRN SL Prn Chest Pain 11/28/16 22:00 12/28/16 21:59 Ondansetron HCl (Zofran) 4 mg Q6H PRN IVP Nausea & Vomiting 11/28/16 22:00 12/28/16 21:59 11/29/16 00:38 Polyethylene Glycol (Miralax) 17 gm HSPRN PRN ORAL Constipation 11/28/16 22:00 12/28/16 21:59 Potassium Chloride/Sodium Chloride (KCl/NS) 570 ml @ 142.5 mls/ hr Q4H ONCE IV 11/30/16 13:00 11/30/16 16:59 11/30/16 13:29 Sodium Chloride 1,000 ml @ 50 mls/hr Q20H IV 11/29/16 09:00 12/29/16 08:59 11/30/16 03:49 Temazepam (Restoril) 15 mg HSPRN PRN ORAL Insomnia 11/28/16 22:00 12/05/16 21:59 CLAU EVANS Nov 30, 2016 16:27
[2016-11-30 20:00] VITALS: BP 139/75
[2016-12-01] VITALS: BP 142/88
[2016-12-01 04:00] VITALS: BP 122/78
[2016-12-01] MEDS: NovoLOG Insulin Flexpen SUBQ SCH ×4 (06:30→21:00)
[2016-12-01] MEDS: NS w/KCl 40mEq 1,000 ML IV SCH ×2 (06:43→21:00)
[2016-12-01 07:25] LABS: BASOPHILS % (AUTO) 1.1 % (0.0-2.0); EOSINOPHILS % (AUTO) 1.8 % (0.0-3.0); LYMPHOCYTES % (AUTO) 18.5 % (20.0-45.0); MEAN CORPUSCULAR HEMOGLOBIN 29.5 PG (27.0-31.0); MEAN CORPUSCULAR HGB CONC 33.2 G/DL (32.0-36.0); MEAN CORPUSCULAR VOLUME 89 FL (80-99); MEAN PLATELET VOLUME 4.7 FL (6.5-10.1); MONOCYTES % (AUTO) 7.7 % (1.0-10.0); NEUTROPHILS % (AUTO) 70.9 % (45.0-75.0); PLATELET COUNT 470 K/UL (150-450); RED BLOOD COUNT 3.62 M/UL (4.20-5.40); RED CELL DISTRIBUTION WIDTH 12.1 % (11.6-14.8); WHITE BLOOD COUNT 5.8 K/UL (4.8-10.8)
[2016-12-01 07:40] LABS: ANION GAP 11 (5-15); CALCIUM 8.8 mg/dL (8.6-10.2); CARBON DIOXIDE 30 mEQ/L (20-30); CHLORIDE 95 mEQ/L (98-107); CREATININE 0.7 mg/dL (0.5-0.9); GLOMERULAR FILTRATION RATE > 60 mL/min (>60); HEMOLYSIS 0; SODIUM 136 mEQ/L (135-145)
[2016-12-01 08:00] VITALS: BP 127/81
--- NOTE | 2016-12-01 08:13 | General Surgery Progress Note ---
General Surgery-Progress Note Subjective Reason for Consult sbo vs ileus Symptoms: worse, pain increased, not tolerating diet, voiding well Additional Comments patient seen and examined at bedside. NG tube was removed by someone yesterday and she was started on liquid diet. she did not tolerate this and developed nausea, emesis, and worsening abdominal pain. NG tube was replaced. she has been feeling mildly better since. currently no n/v/f/c. does still have some abdominal pain but improved. Objective Last 24 Hour Vital Signs Date Time Temp Pulse Resp B/P Pulse Ox O2 Delivery O2 Flow Rate FiO2 12/01/16 04:00 96.5 77 20 122/78 96 Room Air 12/01/16 00:00 97.9 69 20 142/88 95 Room Air 11/30/16 22:12 97.2 11/30/16 20:00 97.2 88 19 139/75 97 Room Air 11/30/16 18:56 Nasal Cannula 2.0 28 11/30/16 18:56 95 Nasal Cannula 2.0 28 11/30/16 16:05 98.1 85 18 125/71 93 Room Air 11/30/16 11:58 97.7 91 18 134/75 97 Room Air 11/30/16 08:10 Nasal Cannula 2.0 28 11/30/16 08:10 96 Nasal Cannula 2.0 28 I&O Intake and Output 11/30/16 12/01/16 19:00 07:00 Intake Total 590 ml Output Total 650 ml 400 ml Balance -650 ml 190 ml Intake Oral 240 ml IV Total 350 ml Output Urine Total 100 ml Gastric Drainage Total 650 ml 300 ml # Voids 2 8 Cardiovascular: RSR Respiratory: clear Abdomen: soft, distended, absent bowel sounds Extremities: no edema, no tenderness Laboratory Tests Test 12/01/16 06:25 White Blood Count 5.8 K/UL (4.8-10.8) Red Blood Count 3.62 M/UL (4.20-5.40) L Hemoglobin 10.7 G/DL (12.0-16.0) L Hematocrit 32.1 % (37.0-47.0) L Mean Corpuscular Volume 89 FL (80-99) Mean Corpuscular Hemoglobin 29.5 PG (27.0-31.0) Mean Corpuscular Hemoglobin Concent 33.2 G/DL (32.0-36.0) Red Cell Distribution Width 12.1 % (11.6-14.8) Platelet Count 470 K/UL (150-450) H Mean Platelet Volume 4.7 FL (6.5-10.1) L Neutrophils (%) (Auto) 70.9 % (45.0-75.0) Lymphocytes (%) (Auto) 18.5 % (20.0-45.0) L Monocytes (%) (Auto) 7.7 % (1.0-10.0) Eosinophils (%) (Auto) 1.8 % (0.0-3.0) Basophils (%) (Auto) 1.1 % (0.0-2.0) Sodium Level 136 mEQ/L (135-145) Potassium Level 4.0 mEQ/L (3.4-4.9) Chloride Level 95 mEQ/L (98-107) L Carbon Dioxide Level 30 mEQ/L (20-30) Anion Gap 11 (5-15) Blood Urea Nitrogen 13 mg/dL (7-23) Creatinine 0.7 mg/dL (0.5-0.9) Estimat Glomerular Filtration Rate > 60 mL/min (>60) Glucose Level 128 mg/dL (74-106) H Calcium Level 8.8 mg/dL (8.6-10.2) Assessment Post-op Diagnosis 41 F s/p lap right nephrectomy. was discharged home post op in stable condition. returned with abdominal pain, nausea and emesis. Now improved. radiographic and clinic evaluation consistent with ileus. ileus was slowly resolving with improved ng tube output and flatus but she failed initial trial of removal of ng tube and liquid diet. Currently stable. Plan Problems: (1) Small bowel obstruction Assessment & Plan: continue with current care and management. NPO with IV fluids NG tube to Low intermittent wall suctio awaiting further return of bowel function. will order small bowel follow through with Gastrografin either today or tomorrow. CT reviewed again and even though can be ileus there is some concern for sbo with such an abrupt transition point in the right pelvis. Tavo Youssef MD Dec 01, 2016 08:13
[2016-12-01] MEDS: Heparin 5000 units/ml inj SUBQ SCH ×2 (09:15→20:19)
--- NOTE | 2016-12-01 11:14 | GI Progress Note ---
Assessment/Plan Problems: (1) Postoperative ileus ICD Codes: K91.3 - Postprocedural intestinal obstruction SNOMED: 735887989 (2) Total bilirubin, elevated ICD Codes: R17 - Unspecified jaundice SNOMED: 209376415364114 (3) Anemia ICD Codes: D64.9 - Anemia, unspecified SNOMED: 592935086 (4) Vomiting ICD Codes: R11.10 - Vomiting, unspecified SNOMED: 541795168 Status: not improved Status Narrative Discussed with Dr. Pires. Assessment/Plan s/p Right Laparoscopic Nephrectomy Nov 23, 2016 07:49 surgical note reviewed >> no surgical intervention needed APCT >> While findings could possibly be related to postoperative ileus, fairly abrupt transition raises concern for small bowel obstruction. Abd US >> Mild extrahepatic biliary ductal dilatation treat conservatively bowel rest >> maintain NPO bowel decompression >> unable to tolerate CLD trial period, NGT reinserted encourage ambulation SB follow through today electrolyte replacement pain mgmt fu labs Subjective Subjective unable to tolerate CLD c N/V Objective Last 24 Hour Vital Signs Date Time Temp Pulse Resp B/P Pulse Ox O2 Delivery O2 Flow Rate FiO2 12/01/16 08:10 Nasal Cannula 2.0 12/01/16 08:09 95 Nasal Cannula 2.0 12/01/16 08:00 97.7 90 18 127/81 92 Room Air 12/01/16 04:00 96.5 77 20 122/78 96 Room Air 12/01/16 00:00 97.9 69 20 142/88 95 Room Air 11/30/16 22:12 97.2 11/30/16 20:00 97.2 88 19 139/75 97 Room Air 11/30/16 18:56 Nasal Cannula 2.0 28 11/30/16 18:56 95 Nasal Cannula 2.0 28 11/30/16 16:05 98.1 85 18 125/71 93 Room Air 11/30/16 11:58 97.7 91 18 134/75 97 Room Air Intake and Output 11/30/16 12/01/16 19:00 07:00 Intake Total 590 ml Output Total 650 ml 400 ml Balance -650 ml 190 ml Intake Oral 240 ml IV Total 350 ml Output Urine Total 100 ml Gastric Drainage Total 650 ml 300 ml # Voids 2 8 Laboratory Tests Test 12/01/16 06:25 White Blood Count 5.8 K/UL (4.8-10.8) Red Blood Count 3.62 M/UL (4.20-5.40) L Hemoglobin 10.7 G/DL (12.0-16.0) L Hematocrit 32.1 % (37.0-47.0) L Mean Corpuscular Volume 89 FL (80-99) Mean Corpuscular Hemoglobin 29.5 PG (27.0-31.0) Mean Corpuscular Hemoglobin Concent 33.2 G/DL (32.0-36.0) Red Cell Distribution Width 12.1 % (11.6-14.8) Platelet Count 470 K/UL (150-450) H Mean Platelet Volume 4.7 FL (6.5-10.1) L Neutrophils (%) (Auto) 70.9 % (45.0-75.0) Lymphocytes (%) (Auto) 18.5 % (20.0-45.0) L Monocytes (%) (Auto) 7.7 % (1.0-10.0) Eosinophils (%) (Auto) 1.8 % (0.0-3.0) Basophils (%) (Auto) 1.1 % (0.0-2.0) Sodium Level 136 mEQ/L (135-145) Potassium Level 4.0 mEQ/L (3.4-4.9) Chloride Level 95 mEQ/L (98-107) L Carbon Dioxide Level 30 mEQ/L (20-30) Anion Gap 11 (5-15) Blood Urea Nitrogen 13 mg/dL (7-23) Creatinine 0.7 mg/dL (0.5-0.9) Estimat Glomerular Filtration Rate > 60 mL/min (>60) Glucose Level 128 mg/dL (74-106) H Calcium Level 8.8 mg/dL (8.6-10.2) Height (Feet): 5 Height (Inches): 10.00 Weight (Pounds): 230 General Appearance: alert, obese Cardiovascular: normal rate Respiratory/Chest: normal breath sounds, no respiratory distress Abdominal Exam: other - NGT replaced Extremities: normal range of motion Rose Schroeder N.P. Dec 01, 2016 11:14
--- NOTE | 2016-12-01 12:35 | Diagnostic Imaging Report ---
APPROVED REPORT CPT Code: 64598 Present Symptoms Comments: R/O DVT BILATERAL: Imaging reveals a patent deep venous system bilaterally. There is no evidence of thrombus within the femoral, popliteal or tibial segments. The greater saphenous veins are also within normal limits. Doppler indicates normal spontaneous flow within these segments.
[2016-12-01 16:00] VITALS: BP 133/80
[2016-12-01] MEDS: Ketorolac 30mg Inj IV PRN ×2 (20:09→20:19)
[2016-12-01 20:24] VITALS: BP 132/78
[2016-12-02] MEDS: NovoLOG Insulin Flexpen SUBQ SCH ×4 (06:30→20:22)
[2016-12-02 07:24] LABS: BASOPHILS % (AUTO) 1.1 % (0.0-2.0); EOSINOPHILS % (AUTO) 1.9 % (0.0-3.0); LYMPHOCYTES % (AUTO) 20.4 % (20.0-45.0); MEAN CORPUSCULAR HEMOGLOBIN 29.6 PG (27.0-31.0); MEAN CORPUSCULAR HGB CONC 32.9 G/DL (32.0-36.0); MEAN CORPUSCULAR VOLUME 90 FL (80-99); MEAN PLATELET VOLUME 4.7 FL (6.5-10.1); MONOCYTES % (AUTO) 8.8 % (1.0-10.0); NEUTROPHILS % (AUTO) 67.8 % (45.0-75.0); PLATELET COUNT 538 K/UL (150-450); RED BLOOD COUNT 3.87 M/UL (4.20-5.40); RED CELL DISTRIBUTION WIDTH 12.7 % (11.6-14.8); WHITE BLOOD COUNT 6.1 K/UL (4.8-10.8)
[2016-12-02 07:27] LABS: ALANINE AMINOTRANSFERASE 22 U/L (3-33); ANION GAP 16 (5-15); ASPARTATE AMINO TRANSFERASE 29 U/L (5-40); CALCIUM 9.3 mg/dL (8.6-10.2); CARBON DIOXIDE 30 mEQ/L (20-30); CHLORIDE 97 mEQ/L (98-107); CREATININE 0.7 mg/dL (0.5-0.9); GLOMERULAR FILTRATION RATE > 60 mL/min (>60); HEMOLYSIS 0; POTASSIUM 3.9 mEQ/L (3.4-4.9); SODIUM 143 mEQ/L (135-145); TOTAL PROTEIN 7.3 g/dL (6.6-8.7)
[2016-12-02 08:00] VITALS: BP 128/72
[2016-12-02] MEDS: Heparin 5000 units/ml inj SUBQ SCH ×2 (08:44→20:21)
--- NOTE | 2016-12-02 10:03 | Diagnostic Imaging Report ---
Indication: Abdominal pain, abdominal distention, nausea, vomiting, history of recent laparoscopic nephrectomy, distended bowel loops on prior CT scan Technique: Tailer Out film obtained. Water-soluble contrast instilled through nasogastric tube, and serial overhead films were obtained. Comparison: Reference made to CT scan 11/28/2016, plain radiograph 11/30/2016 Findings: Tailer Out film demonstrates a nasogastric tube, tip projected at the level of the gastric antrum. Numerous surgical clips are seen in the right side of the abdomen. Dilated small bowel loops are seen in the left upper quadrant and midabdomen After contrast instillation, contrast is seen filling dilated proximal jejunal loops. There is slow antegrade progression of contrast, with no filling of nondilated distal small bowel by 3 hours. However, of the 4 hour film, contrast is seen in distal nondilated small bowel loops and almost certainly the colon, and on the 5 hour 15 minute film, contrast is seen throughout the colon and into the rectum. Impression: Transit of contrast through the small bowel into the colon by definitely 5 hours and 15 minutes and possibly by 4 hours. Proximal small bowel distention therefore most likely represents postoperative ileus, although could represent a component of minimal small bowel obstruction.
--- NOTE | 2016-12-02 10:15 | Diagnostic Imaging Report ---
Indication: Abdominal distention Technique: Supine view of the abdomen Comparison: none Findings: Again demonstrated is is dilatation of the small bowel, appearing similar to the prior exam. Nasogastric tube remains in place, tip projected in the gastric antrum. Right lower quadrant surgical clips and right lateral abdominal and upper pelvic surgical clips are again demonstrated. Findings are unchanged Impression: Unchanged, over one day, findings as above.
--- NOTE | 2016-12-02 10:23 | GI Progress Note ---
Assessment/Plan Problems: (1) Postoperative ileus ICD Codes: K91.3 - Postprocedural intestinal obstruction SNOMED: 749623785 (2) Total bilirubin, elevated ICD Codes: R17 - Unspecified jaundice SNOMED: 919414127645326 (3) Anemia ICD Codes: D64.9 - Anemia, unspecified SNOMED: 684665955 (4) Vomiting ICD Codes: R11.10 - Vomiting, unspecified SNOMED: 249274859 Status: unchanged Status Narrative s/p Right Laparoscopic Nephrectomy Nov 23, 2016 07:49 surgical note reviewed >> no surgical intervention needed APCT >> While findings could possibly be related to postoperative ileus, fairly abrupt transition raises concern for small bowel obstruction. Abd US >> Mild extrahepatic biliary ductal dilatation SB Xray noted >> post operative ileus surgical recs bowel rest >> maintain NPO, ice chips okay bowel decompression >> NGT to LCIS encourage ambulation electrolyte replacement pain mgmt fu labs Assessment/Plan s/p Right Laparoscopic Nephrectomy Nov 23, 2016 07:49 surgical note reviewed >> no surgical intervention needed APCT >> While findings could possibly be related to postoperative ileus, fairly abrupt transition raises concern for small bowel obstruction. Abd US >> Mild extrahepatic biliary ductal dilatation treat conservatively bowel rest >> maintain NPO bowel decompression >> unable to tolerate CLD trial period, NGT reinserted encourage ambulation SB follow through today electrolyte replacement pain mgmt fu labs Subjective Subjective ambulating small BM passing gas + Objective Last 24 Hour Vital Signs Date Time Temp Pulse Resp B/P Pulse Ox O2 Delivery O2 Flow Rate FiO2 12/02/16 07:50 94 Room Air 12/02/16 07:50 Room Air 12/01/16 21:43 97.7 12/01/16 20:24 97.7 74 19 132/78 96 Room Air 12/01/16 19:00 Nasal Cannula 2.0 12/01/16 19:00 94 Nasal Cannula 2.0 12/01/16 16:00 96.3 85 19 133/80 96 Room Air Intake and Output 12/01/16 12/02/16 19:00 07:00 Intake Total 400 ml 450 ml Output Total 200 ml Balance 200 ml 450 ml Intake Oral 100 ml IV Total 400 ml 350 ml Gastric Drainage Total 200 ml # Voids 1 6 # Bowel Movements 7 1 Laboratory Tests Test 12/02/16 05:45 12/02/16 05:48 Sodium Level 143 mEQ/L (135-145) Potassium Level 3.9 mEQ/L (3.4-4.9) Chloride Level 97 mEQ/L (98-107) L Carbon Dioxide Level 30 mEQ/L (20-30) Anion Gap 16 (5-15) H Blood Urea Nitrogen 18 mg/dL (7-23) Creatinine 0.7 mg/dL (0.5-0.9) Estimat Glomerular Filtration Rate > 60 mL/min (>60) Glucose Level 126 mg/dL (74-106) H Calcium Level 9.3 mg/dL (8.6-10.2) Total Bilirubin 1.0 mg/dL (0.0-1.2) Aspartate Amino Transf (AST/SGOT) 29 U/L (5-40) Alanine Aminotransferase (ALT/SGPT) 22 U/L (3-33) Alkaline Phosphatase 103 U/L (35-104) Total Protein 7.3 g/dL (6.6-8.7) Albumin 3.7 g/dL (3.5-5.2) Globulin 3.6 g/dL Albumin/Globulin Ratio 1.0 (1.0-2.7) White Blood Count 6.1 K/UL (4.8-10.8) Red Blood Count 3.87 M/UL (4.20-5.40) L Hemoglobin 11.5 G/DL (12.0-16.0) L Hematocrit 34.9 % (37.0-47.0) L Mean Corpuscular Volume 90 FL (80-99) Mean Corpuscular Hemoglobin 29.6 PG (27.0-31.0) Mean Corpuscular Hemoglobin Concent 32.9 G/DL (32.0-36.0) Red Cell Distribution Width 12.7 % (11.6-14.8) Platelet Count 538 K/UL (150-450) H Mean Platelet Volume 4.7 FL (6.5-10.1) L Neutrophils (%) (Auto) 67.8 % (45.0-75.0) Lymphocytes (%) (Auto) 20.4 % (20.0-45.0) Monocytes (%) (Auto) 8.8 % (1.0-10.0) Eosinophils (%) (Auto) 1.9 % (0.0-3.0) Basophils (%) (Auto) 1.1 % (0.0-2.0) Height (Feet): 5 Height (Inches): 10.00 Weight (Pounds): 230 General Appearance: no apparent distress, alert Cardiovascular: normal rate Respiratory/Chest: lungs clear, normal breath sounds, no respiratory distress Abdominal Exam: non tender, soft Extremities: normal range of motion Objective Procedure: XRAY Small Bowel w/Gastrografi Indication: Abdominal pain, abdominal distention, nausea, vomiting, history of recent laparoscopic nephrectomy, distended bowel loops on prior CT scan Impression: Transit of contrast through the small bowel into the colon by definitely 5 hours and 15 minutes and possibly by 4 hours. Proximal small bowel distention therefore most likely represents postoperative ileus, although could represent a component of minimal small bowel obstruction. Rose Schroeder N.P. Dec 02, 2016 10:23
--- NOTE | 2016-12-02 12:10 | General Surgery Progress Note ---
General Surgery-Progress Note Subjective Additional Comments pt seen and examined at bedside. doing better. had multiple BM's yesterday after contrast study and had small BM this morning. no n/v/f/c. +flatus. abdominal pain improved. Objective Last 24 Hour Vital Signs Date Time Temp Pulse Resp B/P Pulse Ox O2 Delivery O2 Flow Rate FiO2 12/02/16 07:50 94 Room Air 12/02/16 07:50 Room Air 12/01/16 21:43 97.7 12/01/16 20:24 97.7 74 19 132/78 96 Room Air 12/01/16 19:00 Nasal Cannula 2.0 12/01/16 19:00 94 Nasal Cannula 2.0 12/01/16 16:00 96.3 85 19 133/80 96 Room Air I&O Intake and Output 12/01/16 12/02/16 19:00 07:00 Intake Total 400 ml 450 ml Output Total 200 ml Balance 200 ml 450 ml Intake Oral 100 ml IV Total 400 ml 350 ml Gastric Drainage Total 200 ml # Voids 1 6 # Bowel Movements 7 1 Cardiovascular: RSR Respiratory: clear Abdomen: soft, non-tender, present bowel sounds Extremities: no edema, no tenderness Laboratory Tests Test 12/02/16 05:45 12/02/16 05:48 Sodium Level 143 mEQ/L (135-145) Potassium Level 3.9 mEQ/L (3.4-4.9) Chloride Level 97 mEQ/L (98-107) L Carbon Dioxide Level 30 mEQ/L (20-30) Anion Gap 16 (5-15) H Blood Urea Nitrogen 18 mg/dL (7-23) Creatinine 0.7 mg/dL (0.5-0.9) Estimat Glomerular Filtration Rate > 60 mL/min (>60) Glucose Level 126 mg/dL (74-106) H Calcium Level 9.3 mg/dL (8.6-10.2) Total Bilirubin 1.0 mg/dL (0.0-1.2) Aspartate Amino Transf (AST/SGOT) 29 U/L (5-40) Alanine Aminotransferase (ALT/SGPT) 22 U/L (3-33) Alkaline Phosphatase 103 U/L (35-104) Total Protein 7.3 g/dL (6.6-8.7) Albumin 3.7 g/dL (3.5-5.2) Globulin 3.6 g/dL Albumin/Globulin Ratio 1.0 (1.0-2.7) White Blood Count 6.1 K/UL (4.8-10.8) Red Blood Count 3.87 M/UL (4.20-5.40) L Hemoglobin 11.5 G/DL (12.0-16.0) L Hematocrit 34.9 % (37.0-47.0) L Mean Corpuscular Volume 90 FL (80-99) Mean Corpuscular Hemoglobin 29.6 PG (27.0-31.0) Mean Corpuscular Hemoglobin Concent 32.9 G/DL (32.0-36.0) Red Cell Distribution Width 12.7 % (11.6-14.8) Platelet Count 538 K/UL (150-450) H Mean Platelet Volume 4.7 FL (6.5-10.1) L Neutrophils (%) (Auto) 67.8 % (45.0-75.0) Lymphocytes (%) (Auto) 20.4 % (20.0-45.0) Monocytes (%) (Auto) 8.8 % (1.0-10.0) Eosinophils (%) (Auto) 1.9 % (0.0-3.0) Basophils (%) (Auto) 1.1 % (0.0-2.0) Assessment Post-op Diagnosis 41 F s/p lap right nephrectomy. was discharged home post op in stable condition. returned with abdominal pain, nausea and emesis. Now improved. radiographic and clinic evaluation consistent with ileus. Had contrast study yesterday and noted to have contrast pass through system within 4-5 hrs. had multiple BM's. doing well today. Plan Problems: (1) Small bowel obstruction Assessment & Plan: NG tube d/c by myself this AM start clear liquid diet ambulate and OOB start PPI if continues to improve will advance diet slowly tomorrow. Tavo Youssef MD Dec 02, 2016 12:10
--- NOTE | 2016-12-02 12:48 | Pulmonology Progress Note ---
Assessment/Plan Problems: (1) Postoperative ileus (2) Small bowel obstruction Assessment/Plan improving iv fluids check electrolytes Subjective ROS Limited/Unobtainable: No Interval Events: comforable, pt is walking on hallway Allergies: Coded Allergies: NO KNOWN ALLERGIES (Verified Allergy, Unknown, 11/22/16) Objective Last 24 Hour Vital Signs Date Time Temp Pulse Resp B/P Pulse Ox O2 Delivery O2 Flow Rate FiO2 12/02/16 07:50 94 Room Air 12/02/16 07:50 Room Air 12/01/16 21:43 97.7 12/01/16 20:24 97.7 74 19 132/78 96 Room Air 12/01/16 19:00 Nasal Cannula 2.0 12/01/16 19:00 94 Nasal Cannula 2.0 12/01/16 16:00 96.3 85 19 133/80 96 Room Air Intake and Output 12/01/16 12/02/16 19:00 07:00 Intake Total 400 ml 450 ml Output Total 200 ml Balance 200 ml 450 ml Intake Oral 100 ml IV Total 400 ml 350 ml Gastric Drainage Total 200 ml # Voids 1 6 # Bowel Movements 7 1 Laboratory Tests 12/02/16 05:45: Sodium Level 143, Potassium Level 3.9, Chloride Level 97L, Carbon Dioxide Level 30, Anion Gap 16H, Blood Urea Nitrogen 18, Creatinine 0.7, Estimat Glomerular Filtration Rate > 60, Glucose Level 126H, Calcium Level 9.3, Total Bilirubin 1.0 , Aspartate Amino Transf (AST/SGOT) 29, Alanine Aminotransferase (ALT/SGPT) 22, Alkaline Phosphatase 103, Total Protein 7.3, Albumin 3.7, Globulin 3.6, Albumin/ Globulin Ratio 1.0 12/02/16 05:48: White Blood Count 6.1, Red Blood Count 3.87L, Hemoglobin 11.5L, Hematocrit 34.9L , Mean Corpuscular Volume 90, Mean Corpuscular Hemoglobin 29.6, Mean Corpuscular Hemoglobin Concent 32.9, Red Cell Distribution Width 12.7, Platelet Count 538H, Mean Platelet Volume 4.7L, Neutrophils (%) (Auto) 67.8, Lymphocytes (%) (Auto) 20.4, Monocytes (%) (Auto) 8.8, Eosinophils (%) (Auto) 1.9, Basophils (%) (Auto) 1.1 Current Medications Medications (Trade) Dose Ordered Sig/Triny Route PRN Reason Start Time Stop Time Status Last Admin Dose Admin Acetaminophen (Tylenol) 650 mg Q4H PRN ORAL fever 11/28/16 22:00 12/28/16 21:59 Al Hydroxide/Mg Hydroxide (Mylanta II) 30 ml Q6H PRN ORAL dyspepsia 11/28/16 22:00 12/28/16 21:59 Dextrose (Dextrose 50%) STAT PRN IV Hypoglycemia 11/28/16 22:00 12/28/16 21:59 Diphenhydramine HCl (Benadryl) 25 mg Q6H PRN ORAL Itching/Pruritis 11/28/16 22:00 12/28/16 21:59 Heparin Sodium (Porcine) (Heparin 5000 units/ml) 5,000 units EVERY 12 HOURS SUBQ 11/29/16 09:00 12/29/16 08:59 12/02/16 08:44 Insulin Aspart (NovoLOG) BEFORE MEALS AND HS SUBQ 11/29/16 06:30 12/29/16 06:29 11/30/16 21:53 Ketorolac Tromethamine 30 mg 30 mg Q6H PRN IV severe pain 11/29/16 01:15 12/04/16 01:14 12/01/16 20:19 Morphine Sulfate (Morphine Sulfate) 2 mg EVERY 4 HOURS PRN IVP severe Pain (Pain Scale 7-10) 11/28/16 22:00 12/05/16 21:59 11/29/16 16:44 Nitroglycerin (Ntg) 0.4 mg Q5M X 3 DOSES PRN SL Prn Chest Pain 11/28/16 22:00 12/28/16 21:59 Ondansetron HCl (Zofran) 4 mg Q6H PRN IVP Nausea & Vomiting 11/28/16 22:00 12/28/16 21:59 12/02/16 00:19 Pantoprazole (Protonix) 40 mg DAILY IVP 12/02/16 13:00 01/01/17 12:59 Polyethylene Glycol (Miralax) 17 gm HSPRN PRN ORAL Constipation 11/28/16 22:00 12/28/16 21:59 Sodium Chloride (NS w/KCl 40mEq) 1,000 ml @ 50 mls/hr Q20H IV 1/24/17 09:00 12/29/16 08:59 12/01/16 21:00 Temazepam (Restoril) 15 mg HSPRN PRN ORAL Insomnia 11/28/16 22:00 12/05/16 21:59 CLAU EVANS Dec 02, 2016 12:48
[2016-12-02] MEDS: Pantoprazole Inj IVP SCH (13:00)
[2016-12-02 14:37] VITALS: BP 139/81
[2016-12-02 16:12] VITALS: BP 130/77
[2016-12-02] MEDS: NS w/KCl 40mEq 1,000 ML IV SCH (17:48)
[2016-12-02 20:00] VITALS: BP 130/69
[2016-12-02] MEDS: Ketorolac 30mg Inj IV PRN (21:02)
[2016-12-02 23:52] VITALS: BP 127/71
[2016-12-03 04:00] VITALS: BP 126/71
[2016-12-03] MEDS: NovoLOG Insulin Flexpen SUBQ SCH ×4 (06:30→20:43)
[2016-12-03 07:21] LABS: BASOPHILS % (AUTO) 1.3 % (0.0-2.0); EOSINOPHILS % (AUTO) 3.3 % (0.0-3.0); LYMPHOCYTES % (AUTO) 25.7 % (20.0-45.0); MEAN CORPUSCULAR HEMOGLOBIN 29.3 PG (27.0-31.0); MEAN CORPUSCULAR HGB CONC 32.6 G/DL (32.0-36.0); MEAN CORPUSCULAR VOLUME 90 FL (80-99); MEAN PLATELET VOLUME 4.7 FL (6.5-10.1); MONOCYTES % (AUTO) 8.4 % (1.0-10.0); NEUTROPHILS % (AUTO) 61.3 % (45.0-75.0); PLATELET COUNT 486 K/UL (150-450); RED BLOOD COUNT 3.75 M/UL (4.20-5.40); RED CELL DISTRIBUTION WIDTH 12.3 % (11.6-14.8); WHITE BLOOD COUNT 4.7 K/UL (4.8-10.8)
[2016-12-03 08:00] VITALS: BP 129/81
[2016-12-03 08:00] LABS: ANION GAP 13 (5-15); CALCIUM 8.7 mg/dL (8.6-10.2); CARBON DIOXIDE 28 mEQ/L (20-30); CHLORIDE 96 mEQ/L (98-107); CREATININE 0.7 mg/dL (0.5-0.9); GLOMERULAR FILTRATION RATE > 60 mL/min (>60); HEMOLYSIS 4; POTASSIUM 3.9 mEQ/L (3.4-4.9); SODIUM 137 mEQ/L (135-145)
--- NOTE | 2016-12-03 08:14 | General Progress Note ---
Progress Note Progress Note Patient followed for SBO sp laparoscopic right nephrectomy. Had small bowel follow through which showed no obstruction, and also reswulted in multiple BMs . Pt was started on clear liquids and is tolerating so far. Still has some carla discomfort Vital Sign - Last 24 Hours 12/02/16 12/02/16 12/02/16 12/02/16 14:37 16:12 19:47 19:47 Temp 97.2 98.2 Pulse 93 85 Resp 18 22 B/P 139/81 130/77 Pulse Ox 98 97 93 O2 Delivery Room Air Room Air Room Air Room Air 12/02/16 12/02/16 12/02/16 12/03/16 20:00 21:32 23:52 04:00 Temp 98.1 98.1 98.9 98.1 Pulse 71 75 73 Resp 18 18 18 B/P 130/69 127/71 126/71 Pulse Ox 96 94 95 O2 Delivery Room Air Room Air Room Air Intake and Output 12/02/16 12/02/16 12/03/16 15:00 23:00 07:00 Intake Total 50 ml 1110 ml 540 ml Output Total 650 ml Balance -600 ml 1110 ml 540 ml Abdomen soft, mild distention, nontender Laboratory Tests Test 12/03/16 06:39 White Blood Count 4.7 K/UL (4.8-10.8) L Red Blood Count 3.75 M/UL (4.20-5.40) L Hemoglobin 11.0 G/DL (12.0-16.0) L Hematocrit 33.7 % (37.0-47.0) L Mean Corpuscular Volume 90 FL (80-99) Mean Corpuscular Hemoglobin 29.3 PG (27.0-31.0) Mean Corpuscular Hemoglobin Concent 32.6 G/DL (32.0-36.0) Red Cell Distribution Width 12.3 % (11.6-14.8) Platelet Count 486 K/UL (150-450) H Mean Platelet Volume 4.7 FL (6.5-10.1) L Neutrophils (%) (Auto) 61.3 % (45.0-75.0) Lymphocytes (%) (Auto) 25.7 % (20.0-45.0) Monocytes (%) (Auto) 8.4 % (1.0-10.0) Eosinophils (%) (Auto) 3.3 % (0.0-3.0) H Basophils (%) (Auto) 1.3 % (0.0-2.0) Sodium Level 137 mEQ/L (135-145) Potassium Level 3.9 mEQ/L (3.4-4.9) Chloride Level 96 mEQ/L (98-107) L Carbon Dioxide Level 28 mEQ/L (20-30) Anion Gap 13 (5-15) Blood Urea Nitrogen 15 mg/dL (7-23) Creatinine 0.7 mg/dL (0.5-0.9) Estimat Glomerular Filtration Rate > 60 mL/min (>60) Glucose Level 104 mg/dL (74-106) Calcium Level 8.7 mg/dL (8.6-10.2) will advanced diet gradually NETTA FOLEY Dec 03, 2016 08:14
[2016-12-03] MEDS: Pantoprazole Inj IVP SCH (08:39)
[2016-12-03] MEDS: Miralax 17gm pkt ORAL PRN (08:39)
[2016-12-03] MEDS: Heparin 5000 units/ml inj SUBQ SCH ×2 (08:49→20:42)
[2016-12-03 12:00] VITALS: BP 111/62
--- NOTE | 2016-12-03 12:32 | Pulmonology Progress Note ---
Assessment/Plan Problems: (1) Postoperative ileus (2) Small bowel obstruction Assessment/Plan improving iv fluids check electrolytes advance diet as tolerated Subjective ROS Limited/Unobtainable: No Interval Events: feeling better today Constitutional: Reports: no symptoms HEENT: Repors: no symptoms Respiratory: Reports: no symptoms Allergies: Coded Allergies: NO KNOWN ALLERGIES (Verified Allergy, Unknown, 11/22/16) Objective Last 24 Hour Vital Signs Date Time Temp Pulse Resp B/P Pulse Ox O2 Delivery O2 Flow Rate FiO2 12/03/16 12:00 97.3 72 20 111/62 97 Room Air 12/03/16 08:00 97.7 78 20 129/81 97 Room Air 12/03/16 04:00 98.1 73 18 126/71 95 Room Air 12/02/16 23:52 98.9 75 18 127/71 94 Room Air 12/02/16 21:32 98.1 12/02/16 20:00 98.1 71 18 130/69 96 Room Air 12/02/16 19:47 93 Room Air 12/02/16 19:47 Room Air 12/02/16 16:12 98.2 85 22 130/77 97 Room Air 12/02/16 14:37 97.2 93 18 139/81 98 Room Air Intake and Output 12/02/16 12/03/16 19:00 07:00 Intake Total 480 ml 1420 ml Output Total 650 ml Balance -170 ml 1420 ml Intake Oral 280 ml 820 ml IV Total 200 ml 600 ml Gastric Drainage Total 650 ml # Voids 5 4 # Bowel Movements 1 General Appearance: WD/WN HEENT: normocephalic Respiratory/Chest: chest wall non-tender, lungs clear Cardiovascular: normal peripheral pulses Abdomen: normal bowel sounds, soft, non tender Genitourinary: normal external genitalia Extremities: no cyanosis Skin: no rash Laboratory Tests 12/03/16 06:39: White Blood Count 4.7L, Red Blood Count 3.75L, Hemoglobin 11.0L, Hematocrit 33.7L, Mean Corpuscular Volume 90, Mean Corpuscular Hemoglobin 29.3, Mean Corpuscular Hemoglobin Concent 32.6, Red Cell Distribution Width 12.3, Platelet Count 486H, Mean Platelet Volume 4.7L, Neutrophils (%) (Auto) 61.3, Lymphocytes (%) (Auto) 25.7, Monocytes (%) (Auto) 8.4, Eosinophils (%) (Auto) 3.3H, Basophils (%) (Auto) 1.3, Sodium Level 137, Potassium Level 3.9, Chloride Level 96L, Carbon Dioxide Level 28, Anion Gap 13, Blood Urea Nitrogen 15, Creatinine 0.7, Estimat Glomerular Filtration Rate > 60, Glucose Level 104, Calcium Level 8.7 Current Medications Medications (Trade) Dose Ordered Sig/Triny Route PRN Reason Start Time Stop Time Status Last Admin Dose Admin Acetaminophen (Tylenol) 650 mg Q4H PRN ORAL fever 11/28/16 22:00 12/28/16 21:59 Al Hydroxide/Mg Hydroxide (Mylanta II) 30 ml Q6H PRN ORAL dyspepsia 11/28/16 22:00 12/28/16 21:59 Dextrose (Dextrose 50%) STAT PRN IV Hypoglycemia 11/28/16 22:00 12/28/16 21:59 Diphenhydramine HCl (Benadryl) 25 mg Q6H PRN ORAL Itching/Pruritis 11/28/16 22:00 12/28/16 21:59 Heparin Sodium (Porcine) (Heparin 5000 units/ml) 5,000 units EVERY 12 HOURS SUBQ 11/29/16 09:00 12/29/16 08:59 12/03/16 08:49 Insulin Aspart (NovoLOG) BEFORE MEALS AND HS SUBQ 11/29/16 06:30 12/29/16 06:29 12/03/16 11:29 Ketorolac Tromethamine 30 mg 30 mg Q6H PRN IV severe pain 11/29/16 01:15 12/04/16 01:14 12/02/16 21:02 Morphine Sulfate (Morphine Sulfate) 2 mg EVERY 4 HOURS PRN IVP severe Pain (Pain Scale 7-10) 11/28/16 22:00 12/05/16 21:59 11/29/16 16:44 Nitroglycerin (Ntg) 0.4 mg Q5M X 3 DOSES PRN SL Prn Chest Pain 11/28/16 22:00 12/28/16 21:59 Ondansetron HCl (Zofran) 4 mg Q6H PRN IVP Nausea & Vomiting 11/28/16 22:00 12/28/16 21:59 12/02/16 00:19 Pantoprazole (Protonix) 40 mg DAILY IVP 12/02/16 13:00 01/01/17 12:59 12/03/16 08:39 Polyethylene Glycol (Miralax) 17 gm HSPRN PRN ORAL Constipation 11/28/16 22:00 12/28/16 21:59 12/03/16 08:39 Sodium Chloride (NS w/KCl 40mEq) 1,000 ml @ 50 mls/hr Q20H IV 11/29/16 09:00 12/29/16 08:59 12/02/16 17:48 Temazepam (Restoril) 15 mg HSPRN PRN ORAL Insomnia 11/28/16 22:00 12/05/16 21:59 CLAU EVANS Dec 03, 2016 12:32
[2016-12-03] MEDS: NS w/KCl 40mEq 1,000 ML IV SCH (13:08)
[2016-12-03] MEDS ORDERED: NS Irrig 1000ml ONE (13:35)
[2016-12-03] MEDS ORDERED: Tubing IV Secondary IV ONE (13:35)
[2016-12-03 16:00] VITALS: BP 121/80
[2016-12-03 20:00] VITALS: BP 129/78
[2016-12-04 04:00] VITALS: BP 123/77
[2016-12-04] MEDS: NovoLOG Insulin Flexpen SUBQ SCH ×2 (06:21→12:58)
[2016-12-04 08:25] VITALS: BP 115/74
[2016-12-04] MEDS: Pantoprazole Inj IVP SCH (08:32)
[2016-12-04] MEDS: Miralax 17gm pkt ORAL PRN (08:32)
[2016-12-04] MEDS: Heparin 5000 units/ml inj SUBQ SCH (08:39)
[2016-12-04] MEDS: NS w/KCl 40mEq 1,000 ML IV SCH (08:42)
--- NOTE | 2016-12-04 11:17 | General Progress Note ---
Progress Note Progress Note pt followed for s/sx of SBO sp laparoscopic right nephrectomy obstruction clinically resolved. Naya full liquids. had large BM today. Vital Sign - Last 24 Hours 12/03/16 12/03/16 12/03/16 12/03/16 12:00 16:00 19:00 19:00 Temp 97.3 98.1 Pulse 72 73 Resp 20 20 B/P 111/62 121/80 Pulse Ox 97 100 100 O2 Delivery Room Air Room Air Room Air Room Air 12/03/16 12/04/16 12/04/16 12/04/16 20:00 04:00 07:00 07:00 Temp 98.5 97.7 Pulse 77 80 Resp 20 21 B/P 129/78 123/77 Pulse Ox 100 92 100 O2 Delivery Room Air Room Air Room Air Room Air 12/04/16 08:25 Temp 97.5 Pulse 76 Resp 20 B/P 115/74 Pulse Ox 97 O2 Delivery Room Air Intake and Output 12/03/16 12/03/16 12/04/16 15:00 23:00 07:00 Intake Total 1250 ml 1400 ml Balance 1250 ml 1400 ml Abdomen soft, nontender. Wounds clean and dry. Stilll has jorge on wounds, Surgically stable' will advance diet. NETTA FOLEY Dec 04, 2016 11:17
[2016-12-04 12:41] VITALS: BP 114/49
--- NOTE | 2016-12-04 12:50 | Pulmonology Progress Note ---
Assessment/Plan Problems: (1) Postoperative ileus (2) Small bowel obstruction Assessment/Plan improving iv fluids check electrolytes advance diet as tolerated, tolerating well pt wants to go home today Subjective ROS Limited/Unobtainable: No Interval Events: eating well, had a BM Allergies: Coded Allergies: NO KNOWN ALLERGIES (Verified Allergy, Unknown, 11/22/16) Objective Last 24 Hour Vital Signs Date Time Temp Pulse Resp B/P Pulse Ox O2 Delivery O2 Flow Rate FiO2 12/04/16 12:41 98.6 81 20 114/49 97 Room Air 12/04/16 08:25 97.5 76 20 115/74 97 Room Air 12/04/16 07:00 Room Air 12/04/16 07:00 100 Room Air 12/04/16 04:00 97.7 80 21 123/77 92 Room Air 12/03/16 20:00 98.5 77 20 129/78 100 Room Air 12/03/16 19:00 100 Room Air 12/03/16 19:00 Room Air 12/03/16 16:00 98.1 73 20 121/80 100 Room Air Intake and Output 12/03/16 12/04/16 19:00 07:00 Intake Total 1930 ml 720 ml Balance 1930 ml 720 ml Intake Oral 1680 ml 520 ml IV Total 250 ml 200 ml # Voids 7 4 General Appearance: WD/WN HEENT: normocephalic, atraumatic Respiratory/Chest: chest wall non-tender, lungs clear Breasts: no masses Cardiovascular: normal peripheral pulses Abdomen: normal bowel sounds, soft, non tender Genitourinary: normal external genitalia Extremities: no cyanosis Skin: no rash Current Medications Medications (Trade) Dose Ordered Sig/Triny Route PRN Reason Start Time Stop Time Status Last Admin Dose Admin Acetaminophen (Tylenol) 650 mg Q4H PRN ORAL fever 11/28/16 22:00 12/28/16 21:59 Al Hydroxide/Mg Hydroxide (Mylanta II) 30 ml Q6H PRN ORAL dyspepsia 11/28/16 22:00 12/28/16 21:59 12/03/16 16:29 Dextrose (Dextrose 50%) STAT PRN IV Hypoglycemia 11/28/16 22:00 12/28/16 21:59 Diphenhydramine HCl (Benadryl) 25 mg Q6H PRN ORAL Itching/Pruritis 11/28/16 22:00 12/28/16 21:59 Heparin Sodium (Porcine) (Heparin 5000 units/ml) 5,000 units EVERY 12 HOURS SUBQ 11/29/16 09:00 12/29/16 08:59 12/04/16 08:39 Insulin Aspart BEFORE MEALS AND HS SUBQ 11/29/16 06:30 12/29/16 06:29 12/04/16 06:21 Morphine Sulfate (Morphine Sulfate) 2 mg EVERY 4 HOURS PRN IVP severe Pain (Pain Scale 7-10) 11/28/16 22:00 12/05/16 21:59 11/29/16 16:44 Nitroglycerin (Ntg) 0.4 mg Q5M X 3 DOSES PRN SL Prn Chest Pain 11/28/16 22:00 12/28/16 21:59 Ondansetron HCl (Zofran) 4 mg Q6H PRN IVP Nausea & Vomiting 11/28/16 22:00 12/28/16 21:59 12/02/16 00:19 Pantoprazole (Protonix) 40 mg DAILY IVP 12/02/16 13:00 01/01/17 12:59 12/04/16 08:32 Polyethylene Glycol (Miralax) 17 gm HSPRN PRN ORAL Constipation 11/28/16 22:00 12/28/16 21:59 12/04/16 08:32 Sodium Chloride (NS w/KCl 40mEq) 1,000 ml @ 50 mls/hr Q20H IV 11/29/16 09:00 12/29/16 08:59 12/03/16 13:08 Temazepam (Restoril) 15 mg HSPRN PRN ORAL Insomnia 11/28/16 22:00 12/05/16 21:59 CLAU EVANS Dec 04, 2016 12:50
--- NOTE | 2016-12-06 09:07 | Discharge Summary ---
Discharge Summary Hospital Course Date of Admission Nov 28, 2016 at 21:04 Date of Discharge Dec 04, 2016 at 15:28 Admitting Diagnosis SBO HPI Elvie Steel is a 41 year old female who was admitted on Nov 28, 2016 at 21:04 for Small Bowel Obstruction Hospital Course dc summary dictated # [id number] Discharge Medications Continued Medications: Insulin Glargine (Lantus) 100 Unit/1 Ml Insuln.pen 30 SUBQ BEDTIME, #1 EA 0 Refills Insulin Glargine (Lantus) 100 Unit/1 Ml Insuln.pen 25 SUBQ AM, #1 EA 0 Refills Omeprazole (Omeprazole) 20 Mg Capsule.dr 20 MG ORAL DAILY, CAP Ondansetron Odt* (Zofran Odt*) 4 Mg Tab.rapdis 4 MG ORAL Q6H PRN for Nausea & Vomiting, #30 TAB 0 Refills Pioglitazone Hcl* (Actos*) 30 Mg Tablet 30 MG ORAL DAILY, TAB Simvastatin (Zocor) 40 Mg Tablet 40 MG ORAL DAILY, TAB Discharge Condition Upon Discharge: improving, stable Discharge Disposition Patient was discharged to Home (01) Discharge Diagnoses: Discharge Instructions Discharge Instructions Special Instructions I have been assigned to complete a D/C Summary on this account. I was not involved in the patient management Karissa Tinsley NP (Vanchtein) Dec 06, 2016 09:07
--- NOTE | 2016-12-07 00:37 | Discharge Summary 2 SIG ---
DATE OF ADMISSION: 11/28/2016 DATE OF DISCHARGE: 12/04/2016 REASON FOR ADMISSION: A 41-year-old female with recent right laparoscopic nephrectomy on 11/23/2016 came to emergency room for evaluation due to the vomiting and weakness. The patient reported having abdominal pain and vomiting after discharge home. The patient is seen in emergency department the day prior to this visit and workup revealed cystitis. She was discharged with Keflex and Zofran; however, the patient presented and she came back to emergency department. She denies abdominal pain at that time. She denied fevers or chills. CAT scan at the emergency department revealed postoperative ileus, but with concern for small bowel obstruction. Surgery consult as well as the consult by Urology were requested. The patient admitted for further management. ADMITTING DIAGNOSES: 1. Postoperative ileus versus small bowel obstruction. 2. Status post recent laparoscopic nephrectomy. 3. Abdominal pain. HOSPITAL COURSE: The patient admitted to the floor. Initially NPO. IV fluids. NG tube put to the low intermittent suction. General Surgery as well as the Urology seen the patient. Per Urology, her previous surgery for right kidney nephrectomy was uneventful postoperative course. General surgeon seen the patient. Kept her NPO. Antiemetic as needed. GI prophylaxis. Pain management. The patient was passing flatus. No leukocytosis. No fever. He stated in his consultation that there was no need for surgical intervention at that time and the patient needs a conservative treatment. Follow up with serial abdominal exam, made NPO, IV fluids, and NG tube decompression. Surgery followed daily as well as daily abdominal x-ray when the patient had a bowel movement and output from the NG tube minimal and clear as well as the small bowel followthrough revealed passing of the contrast. NG tube was discontinued. The patient started on clear liquid diet. Diet slowly advanced. Able to tolerate diet. Able to ambulate. Pain controlled. Antiemetic provided as needed. Having bowel movements every day. Blood sugar was controlled with sliding scale of insulin and was stable and Surgery cleared for discharge. Recommended bowel regimen. DVT prophylaxis provided. FINAL DIAGNOSES: 1. Postoperative ileus. 2. Partial small bowel obstruction. 3. Status post recent laparoscopic right nephrectomy. 4. Abdominal pain, resolved. 5. Diabetes mellitus. DISCHARGE MEDICATIONS: See medication reconciliation list. DISCHARGE INSTRUCTIONS: The patient discharged home. FOLLOWUP: Follow up with primary medical doctor. I have been assigned to dictate discharge summary on this account and I was not involved in the patient management. Delfino Jarquin M.D. I have been assigned to dictate discharge summary on this account and I was not involved in the patient's management. Karissa Tinsley (vanchtein) NJamir DR: KHURRAM JOB#: [id number] CC:
== END 2016-12-04 15:28 | disposition home or self-care (01) | DRG 252 ==
LOC: EMR 18:40 → 3E 21:04 → EDBEDREQ 22:14
DX: K91.3 Postprocedural intestinal obstruction (principal); I10 Essential (primary) hypertension; J45.909 Unspecified asthma, uncomplicated; E11.9 Type 2 diabetes mellitus without complications; D64.9 Anemia, unspecified; Y83.8 Other surgical procedures as the cause of abnormal reaction of the patient, or of later complication, without mention of misadventure at the time of the procedure; Z90.5 Acquired absence of kidney; K21.9 Gastro-esophageal reflux disease without esophagitis; Z79.4 Long term (current) use of insulin; Z23 Encounter for immunization
CPT/HCPCS: 36415; 74000; 74177; 74250; 76700; 80048; 80053; 81003; 81025; 82150; 82248; 82962; 83036; 83690; 83735; 84100; 84443; 85025; 85610; 85730; 87081; 93970; 94760; J1815; J2405; J2765; Q2036